=== PATIENT | female | born 1970 | race African-American/Black ===

== ENCOUNTER 2019-04-08 19:44 | Inpatient (IN) | payer BC, MEDICAID ==
[~2019-04-08] VITALS: Ht 154.9 cm; Wt 64.9 kg
[2019-04-08] MEDS: Lisinopril 20mg tab ORAL SCH (09:00)
[2019-04-08 22:15] VITALS: BP 157/101
--- NOTE | 2019-04-08 22:20 | NUR ---
NURSE NOTES: Patient arrived to the unit on on a gurney accompanied by cook cold meat. Report was given by Ranjana guzmán RN from [facility] ED Department. Patient was able to transfer self from the gurney to the bed with no incident. Patient is awake, alert and responsive. Breathing regular and unlabored on room air with no s/s of SOB noted at this time. IV access in on the LAC, 20G, patent, intact, and saline locked. Patient is c/o of a headache of 5/10 on the scale of 0-10. Will administer PRN medications after orders have been received by the primary MD. Placed patient on potline monitor, showing sinus rhythm. Belongings list reviewed and signed with the patient. Patient also brought home medications with her, medications taken and put away to give to onsite pharmacy in the morning once they arrive. Oriented patient to the room, patient is able to ambulate with a steady gait. Placed bed in lowest position, side-rails x2, breaks engaged, and call light is within reach at all times. Contacted Dr. Recinos for admitting orders, orders noted and carried out. All other needs attended to, patient remains stable, will continue to monitor.
[2019-04-08] MEDS ORDERED: METFORMIN HCL1000 M1 ORAL (23:45)
[2019-04-08] MEDS ORDERED: LISINOPRIL-HCT1 EAC2 ORAL (23:45)
[2019-04-08] MEDS ORDERED: PRAVASTATIN SOD20 M1 ORAL (23:45)
--- NOTE | 2019-04-08 23:45 | NUR ---
NURSE NOTES: Administered PRN Tylenol per MD orders, re-assessed the patient, patient no longer c/o headache the way she did before. BP also has decreased from previous reading. Patient is currently stable, all needs attended to, will continue to monitor.
[2019-04-09] VITALS: BP 142/92
[2019-04-09 04:00] VITALS: BP 138/83
[2019-04-09] MEDS: NovoLOG Insulin Flexpen SUBQ SCH ×4 (06:24→21:04)
[2019-04-09] MEDS: metFORMIN 500mg tab ORAL SCH ×2 (06:28→17:02)
[2019-04-09 06:56] LABS: BASOPHILS % (AUTO) 1.2 % (0.0-2.0); EOSINOPHILS % (AUTO) 1.5 % (0.0-3.0); HEMATOCRIT 34.2 % (37.0-47.0); HEMOGLOBIN 12.6 G/DL (12.0-16.0); MEAN CORPUSCULAR VOLUME 91 FL (80-99); MONOCYTES % (AUTO) 7.7 % (1.0-10.0); NEUTROPHILS % (AUTO) 52.6 % (45.0-75.0); PLATELET COUNT 164 K/UL (150-450); RED BLOOD COUNT 3.74 M/UL (4.20-5.40); RED CELL DISTRIBUTION WIDTH 11.6 % (11.6-14.8); WHITE BLOOD COUNT 6.3 K/UL (4.8-10.8)
--- NOTE | 2019-04-09 07:17 | NUR ---
HAND-OFF: Report given to Jamilah, plan of care endorsed, patient remains stable.
--- NOTE | 2019-04-09 07:34 | NUR ---
NURSE NOTES: Received report TEJINDER Rodriguez. Pt in bed, awake, talkative, c/o JAYSON, RN will administer Tylenol, no respiratory distress noted, discussed plan of care for pt and pending 2D echo and Dr. Golden to see pt today, IV site L AC 20g SL, bed in lowest position, call light within reach.
--- NOTE | 2019-04-09 07:46 | NUR ---
NURSE NOTES: eMAR showing past due Lisinopril for 04/08/2019 0900, pt was not admitted to [facility] until 04/08/2019 2200, RN non-administered medication as it was an error to show past due medication. Will administer 04/09/19 0900 dose based on pt's current BP
[2019-04-09 08:00] VITALS: BP 145/99
[2019-04-09 08:02] LABS: ALANINE AMINOTRANSFERASE 26 U/L (12-78); ALBUMIN 3.2 G/DL (3.4-5.0); ALBUMIN/GLOBULIN RATIO 0.9 (1.0-2.7); ALKALINE PHOSPHATASE 77 U/L (46-116); ANION GAP 8 mmol/L (5-15); ASPARTATE AMINO TRANSFERASE 13 U/L (15-37); BILIRUBIN,TOTAL 0.5 MG/DL (0.2-1.0); BLOOD UREA NITROGEN 17 mg/dL (7-18); CALCIUM 8.6 MG/DL (8.5-10.1); CARBON DIOXIDE 28 MMOL/L (21-32); CHLORIDE 103 MMOL/L (98-107); CHOLESTEROL 213 MG/DL (< 200); CREATININE 0.8 MG/DL (0.55-1.30); HDL CHOLESTEROL 25 MG/DL (40-60); PHOSPHORUS 3.5 MG/DL (2.5-4.9); POTASSIUM 3.7 MMOL/L (3.5-5.1); SODIUM 139 MMOL/L (136-145); TRIGLYCERIDES 840 MG/DL (30-150)
--- NOTE | 2019-04-09 08:02 | NUR ---
NURSE NOTES: Performed am assessment with pt, Pt states she has TYLER 5/10 on Left side of head and tingling down right arm, RN performed neuro assessment with pt, A/Ox4, pupils STEVE, no deficits between left and right arms and hands, slight deficit between left and right lower extremity. Left foot strength 3/5, right foot is 5/5. RN left message for Dr. Golden Addendum: 04/09/19 at 0810 by MARIA ELENA KWOK RN NURSE NOTES: RN also notified Dr. Recinos Addendum: 04/09/19 at 1037 by MARIA ELENA KWOK RN NURSE NOTES: Discussed with Annalise Fajardo, DIVIDEND DEPOSIT ENTRY CLERK assessment finding including tingling and pt TYLER, Annalise stated she noted a deficit in her strength in hands at this time, DIVIDEND DEPOSIT ENTRY CLERK ordered carotid duplex and contacted Dr. Golden for a neuro consult
[2019-04-09] MEDS: hydroCHLOROthiazide 25mg cap ORAL SCH (09:15)
[2019-04-09] MEDS: Lisinopril 20mg tab ORAL SCH (09:16)
[2019-04-09] MEDS: Heparin 5000 units/ml inj SUBQ SCH ×2 (09:17→21:03)
[2019-04-09 12:00] VITALS: BP 145/92
[2019-04-09] MEDS ORDERED: LORazepam Inj 2mg/ml 1ml IV PRN (12:00)
--- NOTE | 2019-04-09 12:01 | History & Physical ---
History and Physical History & Physicial Dictated for Int Med-Dr Recinos no. [id number]. Karan Golden MD Apr 09, 2019 12:01
--- NOTE | 2019-04-09 12:05 | Diagnostic Imaging Report ---
Indication: TIA TECHNIQUE: Duplex extracranial carotid and vertebral artery sonography performed with color flow imaging and waveform analysis. COMPARISON: None FINDINGS: Right carotid: Grayscale and color-flow imaging demonstrating no hemodynamically significant stenosis within the common carotid artery, extracranial internal carotid artery. Peak systolic and end-diastolic velocities are within normal limits. ICA/CCA ratios are within normal limits. Mild heterogeneous plaques are demonstrated consistent with atherosclerotic disease. Left carotid: Grayscale and color-flow imaging demonstrating no hemodynamically significant stenosis within the common carotid artery, extracranial internal carotid artery. Peak systolic and end-diastolic velocities are within normal limits. ICA/CCA ratios are within normal limits. Mild heterogeneous plaques are demonstrated consistent with atherosclerotic disease. Vertebral arteries: Antegrade flow demonstrated within both vertebral arteries. IMPRESSION: No hemodynamically significant extracranial carotid artery stenosis identified. Antegrade flow within both vertebral arteries. This report utilizes carotid stenosis grading criteria based on the meeting of Society of radiologists in ultrasound consensus conference, December 2001.
[2019-04-09] MEDS: DiphenhydrAMINE 25mg Tab ORAL PRN ×2 (13:05→21:09)
--- NOTE | 2019-04-09 13:09 | Consultation ---
History of Present Illness General Date patient seen: Apr 09, 2019 Time patient seen: 11:03 Chief Complaint: left side weakness Referring physician: dr Recinos Reason for Consultation: critical care consult/hospitalist Present Illness HPI 48 y/old female with PMH of HTN, DM< HLD initially presented to [facility] with sudden onset of left sided numbness around 1 pm at 04/08/19. BP was severely elevated at 197/129-> 194/103-> 170/99. Patient subsequently developed headache and had a blurred vision in the left eye. These symptoms currently resolved. No CP, no SOB CT of the head and MRI of the brain failed to revealed acute intracranial pathology. Patient was transferred to [facility] per insurance purposes. Patient reported today RUE tingling and discomfort at the neck area. Yesterday numbness was on LUE She denied dysphagia, drooling, voice change. She reports smoking about 1 pk/week, no ETOH or illicit drug use. Troponin negative. ECG revealed no acute ischemic changes. BP improved. Lipid panel revealed elevated TC >200 and severely elevated TG >800 Mg-1.6 Allergies: Coded Allergies: No Known Allergies (Unverified , 04/08/19) Medication History Scheduled Lisinopril/Hydrochlorothiazide 20-25 Mg Tab (Lisinopril-Hctz 20-25 Mg Tab), 1 TAB ORAL DAILY, (Reported) Metformin Hcl* (Metformin Hcl*), 1,000 MG ORAL DAILY, (Reported) Pravastatin Sod* (Pravastatin Sod*), 20 MG ORAL BEDTIME, (Reported) Patient History History Provided By: Patient Healthcare decision maker Resuscitation status Full Code Advanced Directive on File Past Medical/Surgical History Past Medical/Surgical History: (1) Hyperlipidemia (2) DM (diabetes mellitus) (3) Hypertension Review of Systems Constitutional: Reports: no symptoms Respiratory: Reports: no symptoms Cardiovascular: Reports: no symptoms Gastrointestinal: Reports: no symptoms Genitourinary: Reports: no symptoms Musculoskeletal: Reports: see HPI Skin: Reports: no symptoms Psychiatric: Reports: no symptoms Neurological: Reports: see HPI Endocrine: Reports: other - DM Hematologic/Lymphatic: Reports: no symptoms Physical Exam General Appearance: WD/WN, no apparent distress, alert Lines, tubes and drains: peripheral HEENT: normocephalic, atraumatic, anicteric, mucous membranes moist Neck: supple Respiratory/Chest: lungs clear, no respiratory distress, no accessory muscle use Cardiovascular/Chest: normal peripheral pulses, normal rate, regular rhythm Abdomen: normal bowel sounds, non tender, soft Extremities: no calf tenderness, normal capillary refill Skin Exam: warm/dry Neurologic: alert, normal mood/affect - L pronator drift, other - L sided motor strength 3/5, R sided 5/5, L pronator drift Musculoskeletal: normal muscle bulk Last 24 Hour Vital Signs Date Time Temp Pulse Resp B/P (MAP) Pulse Ox O2 Delivery O2 Flow Rate FiO2 04/09/19 12:00 97.9 74 16 145/92 (109) 96 04/09/19 09:16 145/99 04/09/19 08:19 Room Air 04/09/19 08:13 98.2 04/09/19 08:00 98.2 80 16 145/99 (114) 96 04/09/19 07:43 80 04/09/19 04:00 77 04/09/19 04:00 97.7 80 16 138/83 (101) 97 04/09/19 00:00 74 04/09/19 00:00 97.5 77 16 142/92 (109) 98 04/08/19 22:50 Room Air 04/08/19 22:20 81 04/08/19 22:15 97.7 83 16 157/101 (119) 96 Intake and Output 04/08/19 04/09/19 19:00 07:00 Output Total 1 ml Balance -1 ml Output Urine Total 1 ml Laboratory Tests Test 04/09/19 05:35 White Blood Count 6.3 K/UL (4.8-10.8) Red Blood Count 3.74 M/UL (4.20-5.40) L Hemoglobin 12.6 G/DL (12.0-16.0) Hematocrit 34.2 % (37.0-47.0) L Mean Corpuscular Volume 91 FL (80-99) Mean Corpuscular Hemoglobin 33.7 PG (27.0-31.0) H Mean Corpuscular Hemoglobin Concent 36.9 G/DL (32.0-36.0) H Red Cell Distribution Width 11.6 % (11.6-14.8) Platelet Count 164 K/UL (150-450) Mean Platelet Volume 10.4 FL (6.5-10.1) H Neutrophils (%) (Auto) 52.6 % (45.0-75.0) Lymphocytes (%) (Auto) 37.0 % (20.0-45.0) Monocytes (%) (Auto) 7.7 % (1.0-10.0) Eosinophils (%) (Auto) 1.5 % (0.0-3.0) Basophils (%) (Auto) 1.2 % (0.0-2.0) Sodium Level 139 MMOL/L (136-145) Potassium Level 3.7 MMOL/L (3.5-5.1) Chloride Level 103 MMOL/L (98-107) Carbon Dioxide Level 28 MMOL/L (21-32) Anion Gap 8 mmol/L (5-15) Blood Urea Nitrogen 17 mg/dL (7-18) Creatinine 0.8 MG/DL (0.55-1.30) Estimat Glomerular Filtration Rate > 60 mL/min (>60) Glucose Level 283 MG/DL (74-106) H Calcium Level 8.6 MG/DL (8.5-10.1) Phosphorus Level 3.5 MG/DL (2.5-4.9) Magnesium Level 1.6 MG/DL (1.8-2.4) L Total Bilirubin 0.5 MG/DL (0.2-1.0) Aspartate Amino Transf (AST/SGOT) 13 U/L (15-37) L Alanine Aminotransferase (ALT/SGPT) 26 U/L (12-78) Alkaline Phosphatase 77 U/L (46-116) Troponin I 0.000 ng/mL (0.000-0.056) Total Protein 6.9 G/DL (6.4-8.2) Albumin 3.2 G/DL (3.4-5.0) L Globulin 3.7 g/dL Albumin/Globulin Ratio 0.9 (1.0-2.7) L Triglycerides Level 840 MG/DL (30-150) H Cholesterol Level 213 MG/DL (< 200) H LDL Cholesterol 67 mg/dL (<100) HDL Cholesterol 25 MG/DL (40-60) L Cholesterol/HDL Ratio 8.5 (3.3-4.4) H Height (Feet): 5 Height (Inches): 1.00 Weight (Pounds): 143 Medications Current Medications Medications (Trade) Dose Ordered Sig/Hans Route PRN Reason Start Time Stop Time Status Last Admin Dose Admin Acetaminophen (Tylenol) 650 mg Q6H PRN ORAL Mild Pain/Temp > 100.5 04/08/19 23:45 05/08/19 23:44 04/09/19 07:43 Aspirin (ASA) 325 mg DAILY ORAL 04/09/19 09:00 05/09/19 08:59 04/09/19 09:15 Clonidine HCl (Catapres Tab) 0.1 mg Q4H PRN ORAL SBP Greater than 160 04/09/19 00:00 05/09/19 00:00 Dextrose (Dextrose 50%) 25 ml Q30M PRN IV Hypoglycemia 04/08/19 23:45 05/08/19 23:44 Dextrose (Dextrose 50%) 50 ml Q30M PRN IV Hypoglycemia 04/08/19 23:45 05/08/19 23:44 Diphenhydramine HCl (Benadryl) 25 mg Q6H PRN ORAL Itching 04/09/19 12:00 05/09/19 11:59 Heparin Sodium (Porcine) (Heparin 5000 units/ml) 5,000 units EVERY 12 HOURS SUBQ 04/09/19 09:00 05/09/19 08:59 04/09/19 09:17 Hydrochlorothiazide (Hydrodiuril) 25 mg DAILY ORAL 04/09/19 09:00 05/09/19 08:59 04/09/19 09:15 Insulin Aspart (NovoLOG) BEFORE MEALS AND HS SUBQ 04/09/19 06:30 05/09/19 06:29 04/09/19 06:24 Lisinopril (PriniviL) 20 mg DAILY ORAL 04/08/19 09:00 05/08/19 08:59 04/09/19 09:16 Lorazepam (Ativan 2mg/ml 1ml) 0.5 mg ONCE PRN IV prior to MRI 04/09/19 12:00 04/09/19 18:00 Metformin HCl (Glucophage) 500 mg BID@0630,1630 ORAL 04/09/19 06:30 05/09/19 06:29 04/09/19 06:28 Ondansetron HCl (Zofran) 4 mg Q4H PRN IVP Nausea & Vomiting 04/08/19 23:45 05/08/19 23:44 Pravastatin Sodium (Pravachol) 20 mg BEDTIME ORAL 04/09/19 21:00 05/09/19 20:59 Assessment/Plan Assessment/Plan: ASSESSMENT 1. L sided weakness , likely CVA 2. HTN with initial HTN urgency 3. DM 4. Mixed HLD with severely elevated TG 5. Smoker 6. Hypomagnesemia PLAN OF CARE tele CT head and MRI negative ( done in [place]) neuro eval carotid Duplex lipid panel with severely elevated TG>800, start pt on TriCor, monitor LFT ASA, statin BP management with LUIS EDUARDO BS management with metformin and SSI as needed; check HgA1c educated on low fat low cholesterol, LOW FAT diet counseling services director on smoking cessation, declined Nicotine patch replace Mg , check level in am case discussed and evaluated by supervising physician Annalise Fajardo NP Apr 09, 2019 13:09
--- NOTE | 2019-04-09 13:45 | NUR ---
CASE MANAGEMENT:REVIEW 48 YR OLD FEMALE TRANSFERRED FROM [facility] TO [place] CC: LEFT SIDED WEAKNESS SI: PROBABLE CVA 97.7 83 16 157/101 96% ON RA GLUCOSE+283 MAG-1.6 IS: TRICOR PO QD IV MAG X1 HEPARIN SQ Q12 ASA PO HCTZ PO QD LISINOPRIL : DIRECTLY ADMITTED TO TELEMETRY PLAN: 2DECHO ST EVAL EKG CAROTID DUPLEX NEURO CONSULT ~ DR VERAS
--- NOTE | 2019-04-09 14:00 | History and Physical Report ---
DATE OF ADMISSION: 04/08/2019 CHIEF COMPLAINT: The patient is a 48-year-old female, who presents with a chief complaint of left-sided weakness and high blood pressure. HISTORY OF PRESENT ILLNESS: The patient has a history of diabetes and hypertension. The patient states she was on her way to work yesterday, approximately noon. The patient began to experience numbness of her left fingers and toes. 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 The patient states her blood pressure at the halfway facility was in the 200/115. The patient then began to experience a headache. The patient also started to have blurred vision in the left eye. The patient initially presented to [facility] emergency room. An initial CT scan of the brain was reported as no evidence of intracranial abnormalities. The patient is transferred to [facility] for insurance purposes. The patient is admitted with left-sided numbness to rule out acute cerebrovascular accident. The patient is also admitted with hypertensive emergency. REVIEW OF SYSTEMS: CONSTITUTIONAL: The patient denies weight loss or weight gain. The patient denies fevers or chills. HEENT: The patient complains of headache as above. The patient denies ear or throat pain. CHEST: The patient denies wheeze or shortness of breath. CARDIOVASCULAR: The patient denies palpitations or chest pain. ABDOMEN: The patient denies nausea, vomiting, diarrhea, or constipation. GENITOURINARY: The patient denies dysuria or increased frequency urination. NEUROMUSCULAR: The patient complains of numbness of the left hand and left toes as above. The patient denies seizures or generalized weakness. PAST MEDICAL HISTORY: Significant for: 1. Type 2 diabetes. 2. Hypertension. 3. Hypercholesterolemia. PAST SURGICAL HISTORY: Significant for: 1. Total abdominal hysterectomy. 2. section x2. CURRENT MEDICATIONS: 1. Metformin 1000 mg p.o. twice daily. 2. Lisinopril/hydrochlorothiazide 20/25 one tablet p.o. daily. 3. Pravastatin 20 mg p.o. daily. ALLERGIES: No known drug allergies. SOCIAL HISTORY: The patient is single and lives alone. The patient admits to tobacco use of one-quarter pack per day. The patient denies alcohol use. PHYSICAL EXAMINATION: VITAL SIGNS: Temperature 98.6, respirations 14, pulse 78, blood pressure 170/99 to 194/103. GENERAL: The patient is well-developed, well-nourished, female, in no apparent distress. HEENT: Eyes, pupils equal and responsive to light and accommodation. Extraocular movements are intact. NECK: Supple without lymphadenopathy. CHEST: Lungs are clear to auscultation bilaterally without wheezes or rales. CARDIOVASCULAR: Regular rate S1, S2 normal without murmurs, rubs, or gallops. ABDOMEN: Soft, nontender, and nondistended. Positive bowel sounds. No evidence of hepatosplenomegaly. Currently, no rebound or guarding noted. EXTREMITIES: Negative for clubbing, cyanosis, or edema. RECTAL/GENITAL: Not performed. NEUROLOGIC: Cranial nerves II through XII are grossly intact without focal deficits. Motor strength is 5/5 bilaterally. Deep tendon reflexes are 2+ plantar. LABORATORY STUDIES: WBC 6.9, hemoglobin 13.1, hematocrit 39.1, platelets 183,000. Sodium 139, potassium 4.3, chloride 104, CO2 27, BUN 11, creatinine 0.51, glucose 212. A CT of the brain revealed no acute intracranial abnormalities. ASSESSMENT: This is a 48-year-old female: 1. Left-sided numbness. 2. Hypertensive emergency. 3. Headache. 4. Blurred vision. 5. Diabetes type 2. 6. Hypertension. 7. Hypercholesterolemia. TREATMENT: 1. Left-sided numbness/headache/blurred vision. Initial CAT scan was reported as no acute intracranial abnormalities. An MRI of the brain is pending. Carotid duplex Dopplers are pending. Neurology consultation has been obtained with Dr. Jax Quezada. We will follow recommendations of Neurology. Differential includes acute cerebrovascular accident versus transient ischemic attack. 2. Hypertensive emergency. The patient has been placed on lisinopril and hydrochlorothiazide as above. Clonidine will be used p.r.n. for systolic greater than 150, diastolic greater than 100. 3. Diabetes type 2. Continue metformin as above. NovoLog sliding scale has been instituted for coverage. 4. Hypercholesterolemia. Continue atorvastatin as above. Karan Golden M.D. DR: LETTY/BETH JOB#: [id number] CC:
--- NOTE | 2019-04-09 15:06 | NUR ---
SWALLOW/SPEECH THERAPY NOTE: REFERRED FOR SWALLOW EVALUATION BY DR GUIDO, SEE FULL REPORT. DYSPHAGIA RISK FACTORS FOR THIS 48 Y.O.? HANDED AA FEMALE: ACUTE TIA (R/O CVA NEG ON MRI/BRAIN AND CT/HEAD SCANS) WITH MIXER OPERATOR RAW SALT (UE FINGERS AND TOES) AND BLURRED VISION RESOLVED PER TRISTIAN KIM MD, HOSPITAL SHE TRANSFERRED FROM. PER PT, HER COWORKERS SAID HER SPEECH CHANGED AND WAS LESS CLEAR BUT THIS PROBLME HAS RESOLVED. H/O HTN, DIABETES (ON INSULIN), AND SMOKING EVERYDAY. NO POLST/AD REGARDING ARTIFICIAL NUTRITION IF SHE NEEDS. AT HOME ON REGULAR TEXTURE AND THIN LIQUID DIET. NOW ON CARDIAC REGULAR TEXTURE AND THIN LIQUID DIET. PER MARIA ELENA MARR, NO OVERT S/S OF DYSPHAGIA NOR ASPIRATION WITH THIN LIQUIDS AND SMALL TYLENOL PILL. PER PATIENT, SHE HAD RIGHT FINGER/HAND TINGLING A MONTH AGO. HER SISTER SAID THAT THEIR FAMILY HAS A H/O STROKES. PATIENT DENIES ANY SPEECH, SWALLOWING, NOR SIGNIFICANT COGNITIVE-LANGUAGE PROBLEMS. SHE DID SAY HER LEFT LE STILL FEELS WEAK (SHE SAW PT). GOOD INTAKE W/O OVERT ASP ON REGULAR TEXTURE AND THIN LIQUIDS PER STAFF. INITIAL IMPRESSIONS: GROSSLY FUNCTIONAL OROMOTOR SKILLS AND SWALLOWING SKILLS WITH ALL CONSISTENCIES OF THIN LIQUIDS VIA STRAW SEQUENTIAL SIPS OF 3 OZ WATER, PUREED TSP, AND MASTICATED SOLIDS (1/2 CRACKER). NO OVERT S/S OF ASPIRATION. QUESTIONABLE RISK FOR SILENT ASPIRATION (PER CT HEAD AND MRI BRAIN NEGATIVE THOUGH PT STILL HAS SOME WEAKNESS ON HER LEFT LE OR FOOT). LUNGS ARE CLEAR NOW. RECOMMENDATIONS: CONSIDER CONTINUING WITH CURRENT REGULAR TEXTURE DIET AND THIN LIQUIDS W/O NEED FOR SPECIFIC ASPIRATION PRECAUTIONS. UNLIKELY NEED FOR MODIFIED BARIUM SWALLOW STUDY AT THIS TIME. DR VERAS, NEUROLOGIST TO SEE PATIENT TOMORROW. GAVE PATIENT AND HER SISTER SOME WRITTEN AND GENERAL INFORMATION ON STROKE FOR FUTURE REFERENCES. WILL D/C FROM SKILLED PIPE [employer]TER [employer] AT THIS TIME PATIENT HAS GROSSLY FUNCTIONAL SPEECH, SWALLOWING, AND COGNITIVE-LINGUISTIC SKILLS AT THIS TIME. 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
[2019-04-09 15:25] VITALS: BP 136/89
--- NOTE | 2019-04-09 19:22 | NUR ---
HAND-OFF: Report given to TEJINDER Rodriguez.
--- NOTE | 2019-04-09 19:30 | NUR ---
NURSE NOTES: Received report from TEJINDER Askew. Patient is in bed, awake, alert, and responsive. Breathing regular and unlabored with no s/s of SOB noted at this time. Patient shows no signs of facial drooping, however the right side is stronger in strength than the left. Neurologist is on the case and primary MD is aware of findings. Patient is no longer c/o a headache, just stating that "My left side of the head feels a bit sore." No numbness or tingling noted. IV access is on the LAC, 20G, patent, intact, and saline locked. Bed is in lowest position, breaks engaged, and call light is within reach at all times. All other needs attended to, patient remains stable, will continue to monitor.
[2019-04-09 20:00] VITALS: BP 143/92
[2019-04-10] VITALS: BP 145/92
[2019-04-10 04:00] VITALS: BP 126/78
[2019-04-10] MEDS: metFORMIN 500mg tab ORAL SCH ×2 (06:14→17:02)
[2019-04-10] MEDS: NovoLOG Insulin Flexpen SUBQ SCH ×4 (06:15→20:30)
[2019-04-10 07:08] LABS: BASOPHILS % (AUTO) 1.8 % (0.0-2.0); EOSINOPHILS % (AUTO) 1.2 % (0.0-3.0); HEMATOCRIT 37.5 % (37.0-47.0); HEMOGLOBIN 14.4 G/DL (12.0-16.0); LYMPHOCYTES % (AUTO) 40.6 % (20.0-45.0); MEAN CORPUSCULAR VOLUME 91 FL (80-99); MONOCYTES % (AUTO) 7.1 % (1.0-10.0); NEUTROPHILS % (AUTO) 49.3 % (45.0-75.0); PLATELET COUNT 205 K/UL (150-450); RED CELL DISTRIBUTION WIDTH 11.5 % (11.6-14.8); WHITE BLOOD COUNT 5.9 K/UL (4.8-10.8)
--- NOTE | 2019-04-10 07:26 | NUR ---
HAND-OFF: Report given to TEJINDER Mariee. Patient remians in stable condition. Plan of care endorsed.
--- NOTE | 2019-04-10 07:30 | NUR ---
NURSE NOTES: Received pt from COOPER MARR, Pt is awake and alert, pt is in RA, no SOB or acute respiratory distress noted. pt has intact iv access LAC 20G SL. Pt is eating breakfast with observation, all needs attended, bed is locked and is in the lowest position, call light within easy reach. will continue to monitor.
[2019-04-10 07:34] LABS: ANION GAP 6 mmol/L (5-15); BLOOD UREA NITROGEN 17 mg/dL (7-18); CALCIUM 8.7 MG/DL (8.5-10.1); CARBON DIOXIDE 30 MMOL/L (21-32); CHLORIDE 100 MMOL/L (98-107); CREATININE 0.8 MG/DL (0.55-1.30); POTASSIUM 4.4 MMOL/L (3.5-5.1); SODIUM 136 MMOL/L (136-145)
[2019-04-10 08:00] VITALS: BP 144/95
[2019-04-10] MEDS: hydroCHLOROthiazide 25mg cap ORAL SCH (08:26)
[2019-04-10] MEDS: Lisinopril 20mg tab ORAL SCH (08:27)
[2019-04-10] MEDS: Heparin 5000 units/ml inj SUBQ SCH ×2 (08:31→20:31)
--- NOTE | 2019-04-10 09:19 | NUR ---
CASE MANAGEMENT:REVIEW 04/10/19 SI: HYPERTENSION. DM POSSIBLE CVA. BLURRED VISION. SLURRED SPEECH 98.1 80 19 144/95 98% ON RA GLUCOSE+298 A1C+9.5 MAG-1.7 IS: TRICOR PO QD HEPARIN SQ Q12 ASA PO QD HCTZ PO QD SS INSULIN AC+HS METFORMIN PO BID LISINOPRIL PO QD : TELEMETRY STATUS DCP: HOME
--- NOTE | 2019-04-10 09:29 | NUR ---
INSURANCE PER B/AR INFORMATION PATIENT HAS BEEN APPROVED FOR 2 DAY STAY IF PATIENT IS HERE LONGER THAN 2 DAYS THEN CLINICALS NEED TO BE FAXED TO F: [phone] T:[phone] REF # [id number]
[2019-04-10 12:00] VITALS: BP 140/93
--- NOTE | 2019-04-10 12:30 | NUR ---
NURSE NOTES: Received pt from KELLEE MARR, Pt is awake and alert, pt is in RA, no SOB or acute respiratory distress noted. pt has intact iv access LFA 20G is running well. Pt is on continues heart monitoring, all needs attended, bed is locked and is in the lowest position, call light within easy reach. will continue to monitor. Addendum: 04/10/19 at 1243 by Jaylene Kuhn RN ERROR WRONG PT.
--- NOTE | 2019-04-10 13:07 | Pulmonology Progress Note ---
Assessment/Plan Problems: (1) Cerebral vascular accident (2) Hypertension (3) DM (diabetes mellitus) Assessment/Plan neuro evaluation requested Echo and US of carotid artery pending monitor BP sliding scale diabetic diet Subjective ROS Limited/Unobtainable: No Constitutional: Reports: no symptoms HEENT: Repors: no symptoms Respiratory: Reports: no symptoms Allergies: Coded Allergies: No Known Allergies (Unverified , 04/08/19) Objective Last 24 Hour Vital Signs Date Time Temp Pulse Resp B/P (MAP) Pulse Ox O2 Delivery O2 Flow Rate FiO2 04/10/19 12:00 98.7 61 18 140/93 (109) 96 04/10/19 11:46 80 04/10/19 09:00 Room Air 04/10/19 08:27 144/95 04/10/19 08:00 98.1 80 19 144/95 (111) 98 04/10/19 07:50 82 04/10/19 04:00 97.5 86 20 126/78 (94) 95 04/10/19 04:00 68 04/10/19 00:00 97.7 80 20 145/92 (109) 95 04/10/19 00:00 81 04/09/19 21:00 Room Air 04/09/19 20:00 97.7 86 20 143/92 (109) 95 04/09/19 20:00 83 04/09/19 16:30 89 04/09/19 15:25 98.2 83 16 136/89 (105) 96 Intake and Output 04/09/19 04/10/19 19:00 07:00 Intake Total 660 ml 360 ml Output Total 2 ml Balance 660 ml 358 ml Intake Oral 660 ml 360 ml Output Urine Total 2 ml # Voids 2 6 General Appearance: WD/WN HEENT: normocephalic, atraumatic Respiratory/Chest: chest wall non-tender, lungs clear, normal breath sounds Cardiovascular: normal peripheral pulses, normal rate Abdomen: normal bowel sounds, soft, non tender Extremities: no cyanosis, no clubbing Skin: no ulcers 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: 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, no motor/sensory deficits Laboratory Tests 04/10/19 05:34: White Blood Count 5.9, Red Blood Count 4.10L, Hemoglobin 14.4, Hematocrit 37.5, Mean Corpuscular Volume 91, Mean Corpuscular Hemoglobin 35.1H, Mean Corpuscular Hemoglobin Concent 38.4H, Red Cell Distribution Width 11.5L, Platelet Count 205 , Mean Platelet Volume 12.1H, Neutrophils (%) (Auto) 49.3, Lymphocytes (%) (Auto ) 40.6, Monocytes (%) (Auto) 7.1, Eosinophils (%) (Auto) 1.2, Basophils (%) ( Auto) 1.8, Sodium Level 136, Potassium Level 4.4, Chloride Level 100, Carbon Dioxide Level 30, Anion Gap 6, Blood Urea Nitrogen 17, Creatinine 0.8, Estimat Glomerular Filtration Rate > 60, Glucose Level 298H, Hemoglobin A1c 9.5H, Calcium Level 8.7, Magnesium Level 1.7L, Thyroid Stimulating Hormone (TSH) 1.815 Current Medications Medications (Trade) Dose Ordered Sig/Hans Route PRN Reason Start Time Stop Time Status Last Admin Dose Admin Acetaminophen (Tylenol) 650 mg Q6H PRN ORAL Mild Pain/Temp > 100.5 04/08/19 23:45 05/08/19 23:44 04/09/19 07:43 Aspirin (ASA) 325 mg DAILY ORAL 04/09/19 09:00 05/09/19 08:59 04/10/19 08:27 Clonidine HCl (Catapres Tab) 0.1 mg Q4H PRN ORAL SBP Greater than 160 04/09/19 00:00 05/09/19 00:00 Dextrose (Dextrose 50%) 25 ml Q30M PRN IV Hypoglycemia 04/08/19 23:45 05/08/19 23:44 Dextrose (Dextrose 50%) 50 ml Q30M PRN IV Hypoglycemia 04/08/19 23:45 05/08/19 23:44 Diphenhydramine HCl (Benadryl) 25 mg Q6H PRN ORAL Itching 04/09/19 12:00 05/09/19 11:59 04/09/19 21:09 Fenofibrate (Tricor) 145 mg DAILY ORAL 04/10/19 09:00 05/10/19 08:59 04/10/19 08:26 Heparin Sodium (Porcine) (Heparin 5000 units/ml) 5,000 units EVERY 12 HOURS SUBQ 04/09/19 09:00 05/09/19 08:59 04/10/19 08:31 Hydrochlorothiazide (Hydrodiuril) 25 mg DAILY ORAL 04/09/19 09:00 05/09/19 08:59 04/10/19 08:26 Insulin Aspart (NovoLOG) BEFORE MEALS AND HS SUBQ 04/09/19 06:30 05/09/19 06:29 04/10/19 11:28 Lisinopril (PriniviL) 20 mg DAILY ORAL 04/08/19 09:00 05/08/19 08:59 04/10/19 08:27 Metformin HCl (Glucophage) 500 mg BID@0630,1630 ORAL 04/09/19 06:30 05/09/19 06:29 04/10/19 06:14 Ondansetron HCl (Zofran) 4 mg Q4H PRN IVP Nausea & Vomiting 04/08/19 23:45 05/08/19 23:44 Pravastatin Sodium (Pravachol) 20 mg BEDTIME ORAL 04/09/19 21:00 05/09/19 20:59 04/09/19 21:02 James Thibodeaux MD Apr 10, 2019 13:07
--- NOTE | 2019-04-10 15:17 | NUR ---
04/10/19...Concerning Cervical MRI, Pt attempts to do another MRI exam after she had just completed the MRI Brain exam. However, pt refused to start exam at this time due to claustrophobia. Although pt was offered Ativan p.o., and I offered to stay overtime if needed, Pt still did not wish to perform scan. Pt is willing to try again tomorrow. RN Afsoon is aware. arpan 15:17
--- NOTE | 2019-04-10 15:30 | NUR ---
NURSE NOTES: pt refused C spine MRI x3 attempts, explained risks and benefits but pt asked for tomorrow, pt took shower and tolerate well. will continue to monitor.
[2019-04-10 16:00] VITALS: BP 140/89
--- NOTE | 2019-04-10 16:13 | Diagnostic Imaging Report ---
Indication: Blurred vision. Numbness in the left hand. Hypertension Technique: The head was imaged in a 1.5 Reina magnet. Sequences obtained include sagittal and axial T1 FLAIR, axial T2 fast spin echo with fat saturation, axial T2* GRE, axial T2 FLAIR, diffusion and ADC map. Comparison: None Findings: The size, contour, and configuration of the sulci, ventricles, and basal cisterns appear normal. Walters-white differentiation is normal. In the periventricular white matter, there are small areas of mostly confluent T2 hyperintense signal. Findings are nonspecific. There is no restricted diffusion. There is no mass effect, midline shift, edema, or hemorrhage. There are no abnormal extra-axial or intra-axial fluid collections. The corpus callosum is unremarkable. The brainstem and cerebellum are unremarkable. The sella is unremarkable. Bone marrow signal within the visualized osseous structures appears age appropriate and unremarkable otherwise. Impression: Periventricular T2 hyperintense signal. Findings are nonspecific. At this age considerations include chronic small vessel disease which may be associated with hypertension. Demyelinating disease is not excludable. Clinical correlation is needed.
--- NOTE | 2019-04-10 16:34 | Internal Med Progress Note ---
Subjective Date of Service: Apr 10, 2019 Physician Name Karan Golden Attending Physician Marcel Recinos MD Current Medications Medications (Trade) Dose Ordered Sig/Hans Route PRN Reason Start Time Stop Time Status Last Admin Dose Admin Acetaminophen (Tylenol) 650 mg Q6H PRN ORAL Mild Pain/Temp > 100.5 04/08/19 23:45 05/08/19 23:44 04/09/19 07:43 Aspirin (ASA) 325 mg DAILY ORAL 04/09/19 09:00 05/09/19 08:59 04/10/19 08:27 Clonidine HCl (Catapres Tab) 0.1 mg Q4H PRN ORAL SBP Greater than 160 04/09/19 00:00 05/09/19 00:00 Dextrose (Dextrose 50%) 25 ml Q30M PRN IV Hypoglycemia 04/08/19 23:45 05/08/19 23:44 Dextrose (Dextrose 50%) 50 ml Q30M PRN IV Hypoglycemia 04/08/19 23:45 05/08/19 23:44 Diphenhydramine HCl (Benadryl) 25 mg Q6H PRN ORAL Itching 04/09/19 12:00 05/09/19 11:59 04/09/19 21:09 Fenofibrate (Tricor) 145 mg DAILY ORAL 04/10/19 09:00 05/10/19 08:59 04/10/19 08:26 Heparin Sodium (Porcine) (Heparin 5000 units/ml) 5,000 units EVERY 12 HOURS SUBQ 04/09/19 09:00 05/09/19 08:59 04/10/19 08:31 Hydrochlorothiazide (Hydrodiuril) 25 mg DAILY ORAL 04/09/19 09:00 05/09/19 08:59 04/10/19 08:26 Insulin Aspart (NovoLOG) BEFORE MEALS AND HS SUBQ 04/09/19 06:30 05/09/19 06:29 04/10/19 11:28 Lisinopril (PriniviL) 20 mg DAILY ORAL 04/08/19 09:00 05/08/19 08:59 04/10/19 08:27 Metformin HCl (Glucophage) 500 mg BID@0630,1630 ORAL 04/09/19 06:30 05/09/19 06:29 04/10/19 06:14 Ondansetron HCl (Zofran) 4 mg Q4H PRN IVP Nausea & Vomiting 04/08/19 23:45 05/08/19 23:44 Pravastatin Sodium (Pravachol) 20 mg BEDTIME ORAL 04/09/19 21:00 05/09/19 20:59 04/09/19 21:02 Allergies: Coded Allergies: No Known Allergies (Unverified , 04/08/19) ROS Limited/Unobtainable: No Constitutional: Reports: no symptoms HEENT: Reports: no symptoms Cardiovascular: Reports: no symptoms Respiratory: Reports: no symptoms Gastrointestinal/Abdominal: Reports: no symptoms Genitourinary: Reports: no symptoms 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: Reports: no symptoms Subjective 48 YO F admitted with left side numbness and headache. Now Hypertensive emergency. Cover for Int [place]-DR Recinos Objective Last Vital Signs Date Time Temp Pulse Resp B/P (MAP) Pulse Ox O2 Delivery O2 Flow Rate FiO2 04/10/19 16:00 98.1 85 20 140/89 (106) 91 04/10/19 09:00 Room Air Laboratory Tests Test 04/10/19 05:34 White Blood Count 5.9 K/UL (4.8-10.8) Red Blood Count 4.10 M/UL (4.20-5.40) L Hemoglobin 14.4 G/DL (12.0-16.0) Hematocrit 37.5 % (37.0-47.0) Mean Corpuscular Volume 91 FL (80-99) Mean Corpuscular Hemoglobin 35.1 PG (27.0-31.0) H Mean Corpuscular Hemoglobin Concent 38.4 G/DL (32.0-36.0) H Red Cell Distribution Width 11.5 % (11.6-14.8) L Platelet Count 205 K/UL (150-450) Mean Platelet Volume 12.1 FL (6.5-10.1) H Neutrophils (%) (Auto) 49.3 % (45.0-75.0) Lymphocytes (%) (Auto) 40.6 % (20.0-45.0) Monocytes (%) (Auto) 7.1 % (1.0-10.0) Eosinophils (%) (Auto) 1.2 % (0.0-3.0) Basophils (%) (Auto) 1.8 % (0.0-2.0) Sodium Level 136 MMOL/L (136-145) Potassium Level 4.4 MMOL/L (3.5-5.1) Chloride Level 100 MMOL/L (98-107) Carbon Dioxide Level 30 MMOL/L (21-32) Anion Gap 6 mmol/L (5-15) Blood Urea Nitrogen 17 mg/dL (7-18) Creatinine 0.8 MG/DL (0.55-1.30) Estimat Glomerular Filtration Rate > 60 mL/min (>60) Glucose Level 298 MG/DL (74-106) H Hemoglobin A1c 9.5 % (4.3-6.0) H Calcium Level 8.7 MG/DL (8.5-10.1) Magnesium Level 1.7 MG/DL (1.8-2.4) L Thyroid Stimulating Hormone (TSH) 1.815 uiU/mL (0.358-3.740) Intake and Output 04/09/19 04/10/19 19:00 07:00 Intake Total 660 ml 360 ml Output Total 2 ml Balance 660 ml 358 ml Intake Oral 660 ml 360 ml Output Urine Total 2 ml # Voids 2 6 Objective PHYSICAL EXAMINATION: GENERAL: The patient is well-developed, well-nourished, female, in no apparent distress. HEENT: Eyes, pupils equal and responsive to light and accommodation. Extraocular movements are intact. NECK: Supple without lymphadenopathy. CHEST: Lungs are clear to auscultation bilaterally without wheezes or rales. CARDIOVASCULAR: Regular rate S1, S2 normal without murmurs, rubs, or gallops. ABDOMEN: Soft, nontender, and nondistended. Positive bowel sounds. No evidence of hepatosplenomegaly. Currently, no rebound or guarding noted. EXTREMITIES: Negative for clubbing, cyanosis, or edema. RECTAL/GENITAL: Not performed. NEUROLOGIC: Cranial nerves II through XII are grossly intact without focal deficits. Motor strength is 5/5 bilaterally. Deep tendon reflexes are 2+ plantar. Assessment/Plan Assessment/Plan ASSESSMENT: This is a 48-year-old female: 1. Left-sided numbness. 2. Hypertensive emergency. 3. Headache. 4. Blurred vision. 5. Diabetes type 2. 6. Hypertension. 7. Hypercholesterolemia. TREATMENT: 1. Left-sided numbness/headache/blurred vision. Initial CAT scan was reported as no acute intracranial abnormalities. An MRI of the brain= non specific findings; no definite infarct. Carotid duplex Dopplers are pending. A Neurology consultation has been obtained with Dr. Jax Quezada. We will follow recommendations of Neurology. Differential includes acute cerebrovascular accident versus transient ischemic attack. 2. Hypertensive emergency. The patient has been placed on lisinopril and hydrochlorothiazide as above. Clonidine will be used p.r.n. for systolic greater than 150, diastolic greater than 100. 3. Diabetes type 2. Continue metformin as above. NovoLog sliding scale has been instituted for coverage. 4. Hypercholesterolemia. Continue atorvastatin as above. Karan Golden MD Apr 10, 2019 16:34
[2019-04-10 18:08] LABS: ANION GAP 8 mmol/L (5-15); BLOOD UREA NITROGEN 16 mg/dL (7-18); CALCIUM 9.2 MG/DL (8.5-10.1); CARBON DIOXIDE 31 MMOL/L (21-32); CHLORIDE 97 MMOL/L (98-107); CREATININE 0.7 MG/DL (0.55-1.30); SODIUM 136 MMOL/L (136-145)
--- NOTE | 2019-04-10 19:30 | NUR ---
HAND-OFF: Report given to MARLI MARR. Pt is awake and stable.
--- NOTE | 2019-04-10 19:40 | NUR ---
NURSE NOTES: Received report from TEJINDER Mariee. Patient is awake laying, watching TV. There are no signs of distress or pain. AO x4. Ambulates independently. Checked IV site, patent and flushed. No erythema, bleeding or infiltration noted. Bed in the lowest position with brakes and siderails up x2. Call light within reach. Will continue plan of care.
[2019-04-10 20:00] VITALS: BP 150/94
[2019-04-10] MEDS: DiphenhydrAMINE 25mg Tab ORAL PRN (20:31)
[2019-04-11] VITALS: BP 135/90
--- NOTE | 2019-04-11 03:46 | NUR ---
NURSE NOTES: Patient is asleep lying semi-damon's; resting comfortably. No signs of acute distress or pain noted at this time.
[2019-04-11 04:00] VITALS: BP 112/72
--- NOTE | 2019-04-11 05:10 | NUR ---
NURSE NOTES: Called Dr. Thibodeaux regarding patient's Magnesium level of 1.7 yesterday, but was not covered. Awaiting callback for any further orders.
[2019-04-11] MEDS: NovoLOG Insulin Flexpen SUBQ SCH ×4 (06:27→21:09)
[2019-04-11] MEDS: metFORMIN 500mg tab ORAL SCH ×2 (06:27→17:07)
[2019-04-11 06:33] LABS: BASOPHILS % (AUTO) 1.2 % (0.0-2.0); HEMATOCRIT 39.6 % (37.0-47.0); HEMOGLOBIN 14.5 G/DL (12.0-16.0); LYMPHOCYTES % (AUTO) 39.5 % (20.0-45.0); MEAN CORPUSCULAR VOLUME 91 FL (80-99); MONOCYTES % (AUTO) 7.7 % (1.0-10.0); NEUTROPHILS % (AUTO) 50.7 % (45.0-75.0); PLATELET COUNT 190 K/UL (150-450); RED BLOOD COUNT 4.37 M/UL (4.20-5.40); RED CELL DISTRIBUTION WIDTH 11.3 % (11.6-14.8); WHITE BLOOD COUNT 6.9 K/UL (4.8-10.8)
--- NOTE | 2019-04-11 07:10 | NUR ---
HAND-OFF: Report given to TEJINDER Mariee. Patient is awake lying semi-damon's; resting comfortably. In stable condition.
--- NOTE | 2019-04-11 07:17 | NUR ---
NURSE NOTES: Received pt from MARLI MARR, Pt is awake and alert, pt is in RA, no SOB or acute respiratory distress noted. Pt is on continues heart monitoring. no complain of pain at this moment. pt has intact iv access LAC 20G SL. Pt is eating breakfast with observation, all needs attended, bed is locked and is in the lowest position, call light within easy reach. will continue to monitor.
[2019-04-11 07:56] VITALS: BP 144/98
[2019-04-11] MEDS ORDERED: LORazepam 0.5mg tab ORAL PRN (08:00)
[2019-04-11] MEDS: hydroCHLOROthiazide 25mg cap ORAL SCH (09:04)
[2019-04-11] MEDS: Lisinopril 20mg tab ORAL SCH (09:04)
[2019-04-11] MEDS: Heparin 5000 units/ml inj SUBQ SCH ×3 (09:09→21:10)
--- NOTE | 2019-04-11 09:11 | NUR ---
CASE MANAGEMENT:REVIEW 04/11/19 SI: HYPERTENSION. DM POSSIBLE CVA. BLURRED VISION. SLURRED SPEECH 98.7 86 20 144/98 96% ON RA GLUCOSE+315 IS: TRICOR PO QD HEPARIN SQ Q12 ASA PO QD HCTZ PO QD SS INSULIN AC+HS METFORMIN PO BID LISINOPRIL PO QD : TELEMETRY STATUS DCP: HOME PLAN: MRI BRAIN MRI SPINE
--- NOTE | 2019-04-11 10:12 | NUR ---
NURSE NOTES: Dr GUAMAN is aware about MG 1.4, waiting to call back. will continue to monitor.
--- NOTE | 2019-04-11 10:19 | NUR ---
*-* INSURANCE *-* ALL CLINICALS AND REVIEWS HAVE BEEN FAXED TO: [employer] TRK# [id number] F: [phone]
--- NOTE | 2019-04-11 11:18 | Pulmonology Progress Note ---
Assessment/Plan Problems: (1) Cerebral vascular accident (2) Hypertension (3) DM (diabetes mellitus) Assessment/Plan neuro evaluation requested, Dr Quezada was texted MRI of brain reviewed: small vessel disease or demyelinating disease monitor BP sliding scale diabetic diet add levemir. Margie was asked to see her. Subjective ROS Limited/Unobtainable: No Allergies: Coded Allergies: No Known Allergies (Unverified , 04/08/19) Objective Last 24 Hour Vital Signs Date Time Temp Pulse Resp B/P (MAP) Pulse Ox O2 Delivery O2 Flow Rate FiO2 04/11/19 09:04 144/98 04/11/19 09:00 Room Air 04/11/19 07:56 98.7 86 20 144/98 (113) 96 04/11/19 07:44 82 04/11/19 04:00 97.8 79 18 112/72 (85) 97 04/11/19 04:00 82 04/11/19 00:00 98.2 89 16 135/90 (105) 98 04/11/19 00:00 79 04/10/19 21:00 Room Air 04/10/19 20:00 98.2 96 16 150/94 (112) 96 04/10/19 20:00 82 04/10/19 16:40 91 04/10/19 16:00 98.1 85 20 140/89 (106) 91 04/10/19 12:00 98.7 61 18 140/93 (109) 96 04/10/19 11:46 80 Intake and Output 04/10/19 04/11/19 18:59 06:59 Intake Total 280 ml Output Total 1800 ml Balance -1520 ml Intake Oral 280 ml Output Urine Total 1800 ml # Voids 3 2 General Appearance: WD/WN HEENT: normocephalic, atraumatic Respiratory/Chest: chest wall non-tender, lungs clear Breasts: no masses Cardiovascular: normal peripheral pulses Abdomen: normal bowel sounds, soft, non tender Genitourinary: normal external genitalia Extremities: no cyanosis Skin: no rash 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 Laboratory Tests 04/10/19 17:30: Sodium Level 136, Potassium Level 4.0, Chloride Level 97L, Carbon Dioxide Level 31, Anion Gap 8, Blood Urea Nitrogen 16, Creatinine 0.7, Estimat Glomerular Filtration Rate > 60, Glucose Level 315H, Calcium Level 9.2 04/11/19 05:55: White Blood Count 6.9, Red Blood Count 4.37, Hemoglobin 14.5, Hematocrit 39.6, Mean Corpuscular Volume 91, Mean Corpuscular Hemoglobin 33.2H, Mean Corpuscular Hemoglobin Concent 36.6H, Red Cell Distribution Width 11.3L, Platelet Count 190 , Mean Platelet Volume 12.4H, Neutrophils (%) (Auto) 50.7, Lymphocytes (%) (Auto ) 39.5, Monocytes (%) (Auto) 7.7, Eosinophils (%) (Auto) 1.0, Basophils (%) ( Auto) 1.2, Magnesium Level 1.4L Current Medications Medications (Trade) Dose Ordered Sig/Hans Route PRN Reason Start Time Stop Time Status Last Admin Dose Admin Acetaminophen (Tylenol) 650 mg Q6H PRN ORAL Mild Pain/Temp > 100.5 04/08/19 23:45 05/08/19 23:44 04/09/19 07:43 Aspirin (ASA) 325 mg DAILY ORAL 04/09/19 09:00 05/09/19 08:59 04/11/19 09:04 Clonidine HCl (Catapres Tab) 0.1 mg Q4H PRN ORAL SBP Greater than 160 04/09/19 00:00 05/09/19 00:00 Dextrose (Dextrose 50%) 25 ml Q30M PRN IV Hypoglycemia 04/08/19 23:45 05/08/19 23:44 Dextrose (Dextrose 50%) 50 ml Q30M PRN IV Hypoglycemia 04/08/19 23:45 05/08/19 23:44 Diphenhydramine HCl (Benadryl) 25 mg Q6H PRN ORAL Itching 04/09/19 12:00 05/09/19 11:59 04/10/19 20:31 Fenofibrate (Tricor) 145 mg DAILY ORAL 04/10/19 09:00 05/10/19 08:59 04/11/19 09:03 Heparin Sodium (Porcine) (Heparin 5000 units/ml) 5,000 units EVERY 12 HOURS SUBQ 04/09/19 09:00 05/09/19 08:59 04/11/19 09:09 Hydrochlorothiazide (Hydrodiuril) 25 mg DAILY ORAL 04/09/19 09:00 05/09/19 08:59 04/11/19 09:04 Insulin Aspart (NovoLOG) BEFORE MEALS AND HS SUBQ 04/09/19 06:30 05/09/19 06:29 04/11/19 06:27 Lisinopril (PriniviL) 20 mg DAILY ORAL 04/08/19 09:00 05/08/19 08:59 04/11/19 09:04 Lorazepam (Ativan) 0.5 mg ONCE PRN ORAL 30min prior to MRI 04/11/19 08:00 04/11/19 20:00 04/11/19 09:04 Metformin HCl (Glucophage) 500 mg BID@0630,1630 ORAL 04/09/19 06:30 05/09/19 06:29 04/11/19 06:27 Ondansetron HCl (Zofran) 4 mg Q4H PRN IVP Nausea & Vomiting 04/08/19 23:45 05/08/19 23:44 Pravastatin Sodium (Pravachol) 20 mg BEDTIME ORAL 04/09/19 21:00 05/09/19 20:59 04/10/19 20:32 James Thibodeaux MD Apr 11, 2019 11:18
[2019-04-11 12:00] VITALS: BP 120/78
[2019-04-11] MEDS: Levemir Flexpen SUBQ SCH (12:09)
[2019-04-11] MEDS: Magnesium Oxide 400mg tab ORAL SCH ×2 (13:07→17:07)
[2019-04-11] MEDS ORDERED: Gadavist 7.5mMol/7.5ml vial IV PRN (13:15)
--- NOTE | 2019-04-11 15:34 | NUR ---
MRA BRAIN AND MRA NECK COMPLETED.
--- NOTE | 2019-04-11 15:37 | Internal Med Progress Note ---
Subjective Physician Name Marcel Recinos Attending Physician Marcel Recinos MD Current Medications Medications (Trade) Dose Ordered Sig/Hans Route PRN Reason Start Time Stop Time Status Last Admin Dose Admin Acetaminophen (Tylenol) 650 mg Q6H PRN ORAL Mild Pain/Temp > 100.5 04/08/19 23:45 05/08/19 23:44 04/09/19 07:43 Aspirin (ASA) 325 mg DAILY ORAL 04/12/19 09:00 05/12/19 08:59 Clonidine HCl (Catapres Tab) 0.1 mg Q4H PRN ORAL SBP Greater than 160 04/09/19 00:00 05/09/19 00:00 Clopidogrel Bisulfate (Plavix) 75 mg DAILY ORAL 04/12/19 09:00 05/12/19 08:59 Dextrose (Dextrose 50%) 25 ml Q30M PRN IV Hypoglycemia 04/08/19 23:45 05/08/19 23:44 Dextrose (Dextrose 50%) 50 ml Q30M PRN IV Hypoglycemia 04/08/19 23:45 05/08/19 23:44 Diphenhydramine HCl (Benadryl) 25 mg Q6H PRN ORAL Itching 04/09/19 12:00 05/09/19 11:59 04/10/19 20:31 Fenofibrate (Tricor) 145 mg DAILY ORAL 04/10/19 09:00 05/10/19 08:59 04/11/19 09:03 Gadobutrol (Gadavist) 7.5 mmol NOW PRN IV Radiology Procedure 04/11/19 13:15 04/14/19 13:14 Heparin Sodium (Porcine) (Heparin 5000 units/ml) 5,000 units EVERY 12 HOURS SUBQ 04/09/19 09:00 05/09/19 08:59 04/11/19 09:09 Hydrochlorothiazide (Hydrodiuril) 25 mg DAILY ORAL 04/09/19 09:00 05/09/19 08:59 04/11/19 09:04 Insulin Aspart (NovoLOG) BEFORE MEALS AND HS SUBQ 04/09/19 06:30 05/09/19 06:29 04/11/19 12:09 Insulin Detemir (Levemir) 13 units DAILY SUBQ 04/11/19 12:30 05/11/19 12:29 04/11/19 12:09 Lisinopril (PriniviL) 20 mg DAILY ORAL 04/08/19 09:00 05/08/19 08:59 04/11/19 09:04 Lorazepam (Ativan) 0.5 mg ONCE PRN ORAL 30min prior to MRI 04/11/19 08:00 04/11/19 20:00 04/11/19 09:04 Magnesium Oxide (Mag-Ox 400mg) 400 mg THREE TIMES A DAY ORAL 04/11/19 13:00 05/11/19 12:59 04/11/19 13:07 Metformin HCl (Glucophage) 500 mg BID@0630,1630 ORAL 04/09/19 06:30 05/09/19 06:29 04/11/19 06:27 Ondansetron HCl (Zofran) 4 mg Q4H PRN IVP Nausea & Vomiting 04/08/19 23:45 05/08/19 23:44 Pravastatin Sodium (Pravachol) 20 mg BEDTIME ORAL 04/09/19 21:00 05/09/19 20:59 04/10/19 20:32 Allergies: Coded Allergies: No Known Allergies (Unverified , 04/08/19) Subjective awake, alert, responsive, No CP or SOB. Objective Last Vital Signs Date Time Temp Pulse Resp B/P (MAP) Pulse Ox O2 Delivery O2 Flow Rate FiO2 04/11/19 12:00 96.8 80 18 120/78 (92) 96 04/11/19 09:00 Room Air Laboratory Tests Test 04/10/19 17:30 04/11/19 05:55 Sodium Level 136 MMOL/L (136-145) Potassium Level 4.0 MMOL/L (3.5-5.1) Chloride Level 97 MMOL/L (98-107) L Carbon Dioxide Level 31 MMOL/L (21-32) Anion Gap 8 mmol/L (5-15) Blood Urea Nitrogen 16 mg/dL (7-18) Creatinine 0.7 MG/DL (0.55-1.30) Estimat Glomerular Filtration Rate > 60 mL/min (>60) Glucose Level 315 MG/DL (74-106) H Calcium Level 9.2 MG/DL (8.5-10.1) White Blood Count 6.9 K/UL (4.8-10.8) Red Blood Count 4.37 M/UL (4.20-5.40) Hemoglobin 14.5 G/DL (12.0-16.0) Hematocrit 39.6 % (37.0-47.0) Mean Corpuscular Volume 91 FL (80-99) Mean Corpuscular Hemoglobin 33.2 PG (27.0-31.0) H Mean Corpuscular Hemoglobin Concent 36.6 G/DL (32.0-36.0) H Red Cell Distribution Width 11.3 % (11.6-14.8) L Platelet Count 190 K/UL (150-450) Mean Platelet Volume 12.4 FL (6.5-10.1) H Neutrophils (%) (Auto) 50.7 % (45.0-75.0) Lymphocytes (%) (Auto) 39.5 % (20.0-45.0) Monocytes (%) (Auto) 7.7 % (1.0-10.0) Eosinophils (%) (Auto) 1.0 % (0.0-3.0) Basophils (%) (Auto) 1.2 % (0.0-2.0) Magnesium Level 1.4 MG/DL (1.8-2.4) L Intake and Output 04/10/19 04/11/19 18:59 06:59 Intake Total 280 ml Output Total 1800 ml Balance -1520 ml Intake Oral 280 ml Output Urine Total 1800 ml # Voids 3 2 Objective General: No acute distress, awake and alert HEENT: NCAT, sclera anicteric, PERRL, EOMI. Neck: Supple, no significant jugular venous distention, Lungs: Good inspiratory effort, clear to auscultation bilaterally, no Wheeze or Rales. Heart: Regular rate and rhythm, normal S1/S2, no murmurs. Abdomen: soft, nontender, nondistended. Normoactive bowel sounds. / Rectal: Refused and deferred. Extremities: No Cyanosis , clubbing or edema. Neuro: A&O x 3, Able to move all extremities Skin: warm, no rashes or lesions Psych: Normal mood and affect Assessment/Plan Assessment/Plan 1. Left-sided numbness possible TIA Vs. CVA Vs. Demyelinating disease . 2. Hypertensive emergency. 3. Headache. 4. Blurred vision. 5. Diabetes type 2. 6. Hypertension. 7. Hypercholesterolemia. TREATMENT: 1. Left-sided numbness/headache/blurred vision. MRA brain and neck. A Neurology consultation has been obtained with Dr. Jax Quezada. We will follow recommendations of Neurology. Differential includes acute cerebrovascular accident versus transient ischemic attack. 2. Hypertensive emergency. The patient has been placed on lisinopril and hydrochlorothiazide as above. Clonidine will be used p.r.n. for systolic greater than 150, diastolic greater than 100. 3. Diabetes type 2. Continue metformin as above. NovoLog sliding scale has been instituted for coverage. 4. Hypercholesterolemia. Continue atorvastatin as above. Macrel Recinos MD Apr 11, 2019 15:37
[2019-04-11 16:00] VITALS: BP 118/84
--- NOTE | 2019-04-11 16:02 | Diagnostic Imaging Report ---
Indication: Neck pain Technique: MRI examination of the cervical spine was performed in a 1.5 Reina magnet. Sequences obtained include sagittal and axial T1 and T2 fast spin echo, and sagittal STIR. Comparison: none Findings: Alignment: Normal Bone marrow signal: Normal. Spinal cord: Cord compression, likely chronic at the levels of C3-4 C4-5. Central intramedullary increased T2 signal consistent with myelomalacia at C4-5. See discussion below. Soft tissues: No paravertebral or paraspinous soft tissue collections or edema identified. C1-2: Unremarkable. C2-3: Unremarkable. C3-4, C4-5, C5-6: There is evidence of a large central posterior extradural mass (C3-C6 ) likely representing large disc extrusion involving the 3 contiguous discs at C3-4, C4-5 and C5-6. At C3-4, the epidural focus is isointense and signal to disc on both T1 and T2-weighted images. At C3-4, the disc extrusion measures 6 mm AP and 7.4 mm transverse dimensions. There is moderate compression of the thecal sac and cord resulting in stenosis of the central canal which has a residual thecal sac diameter at its narrowest of about 4 mm at this level. In the craniocaudal dimension the extruded disc extends as superior as the C2-3 disc level. At its inferior margin the disc extrusion is contiguous with a C4-5 disc extrusion and also contiguous with a C5-6 disc extrusion. Craniocaudally, the entire extradural mass extends to the C6-7 disc. There is mild narrowing of the C3-4 neural foramen bilaterally due to uncovertebral/facet arthropathy. At C4-5 there is moderate loss of disc height. There is evidence of a prominent disc extrusion at this level measuring about 6 m AP. As stated previously, the disc extrusion is contiguous extruded disc material from the level above. The inferior margin of the C4-5 disc extrusion is better defined. There is moderate to severe stenosis of the C4-5 neural foramen bilaterally due to uncovertebral/facet arthropathy. At C5-6 there is also evidence of a disc extrusion. AP dimension is about 3 to 4 mm. There is loss of disc height. There is slight inferior extension of the disc extrusion to about the level of the C6-7 disc. There is moderate stenosis of the C5-6 neural foramen bilaterally due to uncovertebral/facet arthropathy. C6-7: There is no disc herniation at this level. The central canal is patent. The lateral recesses are patent as are neural foramina. C7-T1 widely patent central canal, lateral recess and neural foramen demonstrated. Disc height is normal. IMPRESSION: Intermediate to low signal intensity extradural mass posterior to C3, C4, C5 and C6 likely on the basis of disc extrusions at C3-4, C4-5 and C5-6. Associated compression of the spinal cord at C3-4 and C4-5 with resultant myelomalacia. The extruded disc material appears relatively contiguous with the parent disc at each of these levels and is difficult to delineate further on this study. Would also consider the possibility of superimposed hypertrophy or calcification of the posterior longitudinal ligament. Consider CT for evaluation. Narrowing of the neural foramen at C3-4, C4-5 and C5-6 secondary to uncovertebral/facet arthropathy.
--- NOTE | 2019-04-11 16:42 | Diagnostic Imaging Report ---
Indication: Syncope Technique: Study was performed in a 1.5 Reina magnet. Gadolinium-enhanced MR angiography of the extracranial portions of both carotid arteries performed from the thoracic arch to the skull base. Maximum intensity projection images displayed in different projections. Comparison: None Findings: Right carotid: No significant carotid stenosis is identified. Left carotid: No significant stenosis is identified. Vertebral arteries below the skull base appear unremarkable. The aortic arch appears unremarkable. The origins of the left subclavian, left common carotid and innominate arteries appear patent. Origin of the right common carotid artery is patent. IMPRESSION: Negative evaluation of the extracranial carotid and vertebral arteries. No stenosis identified.
--- NOTE | 2019-04-11 16:43 | Diagnostic Imaging Report ---
Indication: Syncope. Left eye blurry vision. Numbness in the left hand Technique: 3-D [id number] of the brain Comparison: None Findings: No significant stenosis, vascular malformation, or aneurysm is identified. Flow-related enhancement of the major intracranial arteries demonstrated including the anterior, middle, and posterior cerebral arteries. Impression: Negative MRA of the brain
--- NOTE | 2019-04-11 19:21 | NUR ---
HAND-OFF: Report given to COOPER MARR. Pt is awake and stable, endorsed to F/U for CERVICAL collar with CM.
--- NOTE | 2019-04-11 19:30 | NUR ---
NURSE NOTES: Received report from TEJINDER Mariee. Patient is in bed, awake, alert, and responsive. Breathing regular and unlabored with no S/S of SOB noted. Patient denies any pain or discomfort at this time. Bed is in lowest position, breaks engaged, and call light is within reach at all times. All other needs attended to, patient remains stable, will continue to monitor.
[2019-04-11 20:00] VITALS: BP 118/94
[2019-04-12] VITALS: BP 120/89
[2019-04-12 04:00] VITALS: BP_SYST 108; BP_SYST 152; BP_DIAS 65; BP_DIAS 69
[2019-04-12] MEDS: metFORMIN 500mg tab ORAL SCH (06:36)
[2019-04-12] MEDS: NovoLOG Insulin Flexpen SUBQ SCH ×2 (06:38→11:30)
--- NOTE | 2019-04-12 07:05 | NUR ---
HAND-OFF: Report given to TEJINDER Askew. Patient in stable condition, plan of care endorsed.
[2019-04-12 07:31] LABS: EOSINOPHILS % (AUTO) 1.2 % (0.0-3.0); HEMATOCRIT 41.2 % (37.0-47.0); HEMOGLOBIN 14.5 G/DL (12.0-16.0); LYMPHOCYTES % (AUTO) 30.3 % (20.0-45.0); MEAN CORPUSCULAR VOLUME 92 FL (80-99); MONOCYTES % (AUTO) 9.4 % (1.0-10.0); NEUTROPHILS % (AUTO) 58.2 % (45.0-75.0); PLATELET COUNT 204 K/UL (150-450); RED CELL DISTRIBUTION WIDTH 11.3 % (11.6-14.8); WHITE BLOOD COUNT 7.7 K/UL (4.8-10.8)
[2019-04-12 08:00] VITALS: BP 113/78
--- NOTE | 2019-04-12 08:03 | NUR ---
NURSE NOTES: Received report from TEJINDER Rodriguez. Pt in bed,awake, talkative, a/ox4, eating breakfast, no c/o pain, no apparent distress noted, discussed plan of care with pt and RN will call CM regarding cervical spine collar, bed in lowest position, call light within reach.
[2019-04-12 08:21] LABS: ALANINE AMINOTRANSFERASE 25 U/L (12-78); ALBUMIN 3.7 G/DL (3.4-5.0); ALBUMIN/GLOBULIN RATIO 0.9 (1.0-2.7); ALKALINE PHOSPHATASE 71 U/L (46-116); ANION GAP 8 mmol/L (5-15); ASPARTATE AMINO TRANSFERASE 14 U/L (15-37); BILIRUBIN,TOTAL 0.8 MG/DL (0.2-1.0); BLOOD UREA NITROGEN 13 mg/dL (7-18); CALCIUM 9.8 MG/DL (8.5-10.1); CARBON DIOXIDE 30 MMOL/L (21-32); CHLORIDE 97 MMOL/L (98-107); PHOSPHORUS 4.7 MG/DL (2.5-4.9); SODIUM 135 MMOL/L (136-145)
[2019-04-12] MEDS: Lisinopril 20mg tab ORAL SCH (09:21)
[2019-04-12] MEDS: Magnesium Oxide 400mg tab ORAL SCH ×2 (09:22→12:04)
[2019-04-12] MEDS: hydroCHLOROthiazide 25mg cap ORAL SCH (09:22)
[2019-04-12] MEDS: Levemir Flexpen SUBQ SCH (09:26)
--- NOTE | 2019-04-12 09:33 | NUR ---
NURSE NOTES: Discussed with BOYD Woody mag 1.6, pt is already taking mag oxide 400mg PO TID, no new orders given
--- NOTE | 2019-04-12 09:54 | Pulmonology Progress Note ---
Assessment/Plan Assessment/Plan ASSESSMENT 1. L sided weakness , resolved, ?TIA vs CVA 2. HTN with initial HTN urgency 3. DM 4. Mixed HLD with severely elevated TG 5. Smoker 6. Hypomagnesemia PLAN OF CARE tele CT head and MRI brain negative MRI of the brain with nonspecific findings, demyelinating disease not excludable MRA of the brain negative MRA of the neck with negative evaluation of the extracranial carotid and vertebral arteries, no stenosis head MRI/neck MRA MRI cervical spine with associated compression of the spinal cord at C3-4 and C4 -5 with resultant myelomalacia , recommended CT for evaluation carotid Duplex unremarkable neuro eval done, but no consult in the EMR available cervical collar ordered , all neuro symptoms now resolved need neurosurgery eval hemoglobin A1c 9.4 Levemir added for BS control started on oral magnesium supplements BP management with LUIS EDUARDO and HCTZ lipid panel with severely elevated TG>800, started pt on TriCor, monitor LFT , educated on diet ASA, Plavix, statin evp general counsel on smoking cessation, declined Nicotine patch all symptoms resolved, pt wanted to go home unfortunately no neurosurgeon service available at this facility patient was counseled to make appointment with her PMD in 2-3 days with referral to neurosurgeon for further management patient was also counseled if symptoms returned, go to a larger ER, like [facility] for further evaluation and management patient verbalized understanding of dc instructions in fact, she already made an appointment with PMD for the next week case discussed and evaluated by supervising physician Subjective Allergies: Coded Allergies: No Known Allergies (Unverified , 04/08/19) Subjective neuro symptoms resolved seen by neuro all imaging reviewed Objective Last 24 Hour Vital Signs Date Time Temp Pulse Resp B/P (MAP) Pulse Ox O2 Delivery O2 Flow Rate FiO2 04/12/19 09:21 113/78 04/12/19 09:00 Room Air 04/12/19 08:00 98.2 88 21 113/78 (90) 98 04/12/19 04:00 98.0 65 19 108/65 (79) 97 04/12/19 04:00 84 04/12/19 00:00 98.0 99 20 120/89 (99) 96 04/12/19 00:00 84 04/11/19 21:00 Room Air 04/11/19 20:00 98.1 103 20 118/94 (102) 96 04/11/19 20:00 97 04/11/19 16:00 98.1 100 18 118/84 (95) 97 04/11/19 15:38 98 04/11/19 12:00 96.8 80 18 120/78 (92) 96 04/11/19 11:45 89 Intake and Output 04/11/19 04/12/19 18:59 06:59 Intake Total 280 ml 160 ml Output Total 1600 ml Balance -1320 ml 160 ml Intake Oral 280 ml 160 ml Output Urine Total 1600 ml # Voids 3 1 Objective General Appearance: WD/WN, no apparent distress, A/A/O x 4 Lines, tubes and drains: peripheral HEENT: normocephalic, atraumatic, anicteric, mucous membranes moist Neck: supple Respiratory/Chest: lungs clear, no respiratory distress, no accessory muscle use Cardiovascular/Chest: normal peripheral pulses, normal rate, regular rhythm Abdomen: normal bowel sounds, non tender, soft Extremities: no calf tenderness, normal capillary refill Skin Exam: warm/dry Neurologic: alert, normal mood/affect; motor strength now 5/5 BLE and BUE, no pronator drift Musculoskeletal: normal muscle bulk Laboratory Tests 04/12/19 05:50: White Blood Count 7.7, Red Blood Count 4.50, Hemoglobin 14.5, Hematocrit 41.2, Mean Corpuscular Volume 92, Mean Corpuscular Hemoglobin 32.3H, Mean Corpuscular Hemoglobin Concent 35.2, Red Cell Distribution Width 11.3L, Platelet Count 204, Mean Platelet Volume 10.8H, Neutrophils (%) (Auto) 58.2, Lymphocytes (%) (Auto) 30.3, Monocytes (%) (Auto) 9.4, Eosinophils (%) (Auto) 1.2, Basophils (%) (Auto ) 1.0, Erythrocyte Sedimentation Rate 33H, Sodium Level 135L, Potassium Level 4.0, Chloride Level 97L, Carbon Dioxide Level 30, Anion Gap 8, Blood Urea Nitrogen 13, Creatinine 1.0, Estimat Glomerular Filtration Rate > 60, Glucose Level 218H, Calcium Level 9.8, Phosphorus Level 4.7, Magnesium Level 1.6L, Total Bilirubin 0.8, Aspartate Amino Transf (AST/SGOT) 14L, Alanine Aminotransferase (ALT/SGPT) 25, Alkaline Phosphatase 71, C-Reactive Protein, Quantitative 1.1H, Total Protein 7.8, Albumin 3.7, Globulin 4.1, Albumin/ Globulin Ratio 0.9L Current Medications Medications (Trade) Dose Ordered Sig/Hans Route PRN Reason Start Time Stop Time Status Last Admin Dose Admin Acetaminophen (Tylenol) 650 mg Q6H PRN ORAL Mild Pain/Temp > 100.5 04/08/19 23:45 05/08/19 23:44 04/11/19 17:10 Aspirin (ASA) 325 mg DAILY ORAL 04/12/19 09:00 05/12/19 08:59 04/12/19 09:21 Clonidine HCl (Catapres Tab) 0.1 mg Q4H PRN ORAL SBP Greater than 160 04/09/19 00:00 05/09/19 00:00 Clopidogrel Bisulfate (Plavix) 75 mg DAILY ORAL 04/12/19 09:00 05/12/19 08:59 04/12/19 09:22 Dextrose (Dextrose 50%) 25 ml Q30M PRN IV Hypoglycemia 04/08/19 23:45 05/08/19 23:44 Dextrose (Dextrose 50%) 50 ml Q30M PRN IV Hypoglycemia 04/08/19 23:45 05/08/19 23:44 Diphenhydramine HCl (Benadryl) 25 mg Q6H PRN ORAL Itching 04/09/19 12:00 05/09/19 11:59 04/10/19 20:31 Fenofibrate (Tricor) 145 mg DAILY ORAL 04/10/19 09:00 05/10/19 08:59 04/12/19 09:22 Gadobutrol (Gadavist) 7.5 mmol NOW PRN IV Radiology Procedure 04/11/19 13:15 04/14/19 13:14 Heparin Sodium (Porcine) (Heparin 5000 units/ml) 5,000 units EVERY 12 HOURS SUBQ 04/09/19 09:00 05/09/19 08:59 04/11/19 09:09 Hydrochlorothiazide (Hydrodiuril) 25 mg DAILY ORAL 04/09/19 09:00 05/09/19 08:59 04/12/19 09:22 Insulin Aspart (NovoLOG) BEFORE MEALS AND HS SUBQ 04/09/19 06:30 05/09/19 06:29 04/12/19 06:38 Insulin Detemir (Levemir) 13 units DAILY SUBQ 04/11/19 12:30 05/11/19 12:29 04/12/19 09:26 Lisinopril (PriniviL) 20 mg DAILY ORAL 04/08/19 09:00 05/08/19 08:59 04/12/19 09:21 Magnesium Oxide (Mag-Ox 400mg) 400 mg THREE TIMES A DAY ORAL 04/11/19 13:00 05/11/19 12:59 04/12/19 09:22 Metformin HCl (Glucophage) 500 mg BID@0630,1630 ORAL 04/09/19 06:30 05/09/19 06:29 04/12/19 06:36 Ondansetron HCl (Zofran) 4 mg Q4H PRN IVP Nausea & Vomiting 04/08/19 23:45 05/08/19 23:44 Pravastatin Sodium (Pravachol) 20 mg BEDTIME ORAL 04/09/19 21:00 05/09/19 20:59 04/11/19 21:08 Annalise Fajardo NP Apr 12, 2019 09:54
--- NOTE | 2019-04-12 11:28 | NUR ---
NURSE NOTES: Obtained soft cervical collar for pt and placed around pt's neck properly. Updated pt on plan of care, pt needs to be seen by a neurosurgeon. BOYD Fajardo contacted Dr. Golden to obtain consult/referral, RN will f/u with Dr. Golden during rounds. RN will provide pt with education on myelomalcia and review with pt
--- NOTE | 2019-04-12 11:30 | NUR ---
RD ASSESSMENT & RECOMMENDATIONS SEE CARE ACTIVITY FOR COMPLETE ASSESSMENT DAILY ESTIMATED NEEDS: Needs based on DM, cardiac/ 52kg abw 25-30 kcals/kg 8305-5665 total kcals 1-1.2 g protein/kg 52-62 g total protein 25-30 mL/kg 4974-0976 total fluid mLs NUTRITION DIAGNOSIS: Altered nutrition related lab values R/T diabetes and altered lipid metabolism as evidenced by elev A1C of 9.5 w/ elev POC glu (194 197 248 233), elev triglyceride (840), elev total cholesterol (213). RD consult received for diet education regarding elev triglyceride. Pt aware of elev BGs and lipid panel levels. Currently on lipid lowering agents and Levemir + NISS + oral hypoglycemic for DM. Reports has not been active recently, has been lazy, and not watching diet. Diet education provided on cardiac diet as well as carb controlled diet. Reviewed carbs, carb counting, recommend carb servings w/ meals and in b/w meals, cardiac diet, examples of foods high in sodium, saturated and trans fat, healthy fats, reading nutrition facts labels, portion control, exercise and wt loss, etc. Pt asked many questions, verbalized good understanding of materials provided. Diet handouts provided as well. CURRENT DIET:CARDIAC, CCHO MED PO DIET RECOMMENDATIONS: CARDIAC + CCHO LOW (Texture per [employer]) ADDITIONAL RECOMMENDATIONS: * Standing wt for accurate CBW * Diet education provided on cardiac + carb controlled diet -> handouts provided as well * Monitor BGs closely, need to adjust insulin : a1c 9.5, POC glu high 100's + 200's. * Monitor lytes, replete as needed: low mag
[2019-04-12 12:00] VITALS: BP 108/79
--- NOTE | 2019-04-12 14:23 | Internal Med Progress Note ---
Subjective Date of Service: Apr 12, 2019 Physician Name ChantelKaran Attending Physician Marcel Recinos MD Current Medications Medications (Trade) Dose Ordered Sig/Hans Route PRN Reason Start Time Stop Time Status Last Admin Dose Admin Acetaminophen (Tylenol) 650 mg Q6H PRN ORAL Mild Pain/Temp > 100.5 04/08/19 23:45 05/08/19 23:44 04/11/19 17:10 Aspirin (ASA) 325 mg DAILY ORAL 04/12/19 09:00 05/12/19 08:59 04/12/19 09:21 Clonidine HCl (Catapres Tab) 0.1 mg Q4H PRN ORAL SBP Greater than 160 04/09/19 00:00 05/09/19 00:00 Clopidogrel Bisulfate (Plavix) 75 mg DAILY ORAL 04/12/19 09:00 05/12/19 08:59 04/12/19 09:22 Dextrose (Dextrose 50%) 25 ml Q30M PRN IV Hypoglycemia 04/08/19 23:45 05/08/19 23:44 Dextrose (Dextrose 50%) 50 ml Q30M PRN IV Hypoglycemia 04/08/19 23:45 05/08/19 23:44 Diphenhydramine HCl (Benadryl) 25 mg Q6H PRN ORAL Itching 04/09/19 12:00 05/09/19 11:59 04/10/19 20:31 Fenofibrate (Tricor) 145 mg DAILY ORAL 04/10/19 09:00 05/10/19 08:59 04/12/19 09:22 Gadobutrol (Gadavist) 7.5 mmol NOW PRN IV Radiology Procedure 04/11/19 13:15 04/14/19 13:14 Glimepiride (AmaryL) 2 mg ACBREAKFAST ORAL 04/13/19 06:30 05/13/19 06:29 Heparin Sodium (Porcine) (Heparin 5000 units/ml) 5,000 units EVERY 12 HOURS SUBQ 04/09/19 09:00 05/09/19 08:59 04/11/19 09:09 Hydrochlorothiazide (Hydrodiuril) 25 mg DAILY ORAL 04/09/19 09:00 05/09/19 08:59 04/12/19 09:22 Insulin Aspart (NovoLOG) BEFORE MEALS AND HS SUBQ 04/09/19 06:30 3/6/20 06:29 04/12/19 11:30 Lisinopril (PriniviL) 20 mg DAILY ORAL 04/08/19 09:00 05/08/19 08:59 04/12/19 09:21 Magnesium Oxide (Mag-Ox 400mg) 400 mg THREE TIMES A DAY ORAL 04/11/19 13:00 05/11/19 12:59 04/12/19 12:04 Metformin HCl (Glucophage) 1,000 mg BID@0630,1630 ORAL 04/12/19 16:30 05/09/19 06:29 Ondansetron HCl (Zofran) 4 mg Q4H PRN IVP Nausea & Vomiting 04/08/19 23:45 05/08/19 23:44 Pravastatin Sodium (Pravachol) 20 mg BEDTIME ORAL 04/09/19 21:00 05/09/19 20:59 04/11/19 21:08 Sitagliptin Phosphate (Januvia) 100 mg ACBREAKFAST ORAL 04/13/19 06:30 05/13/19 06:29 Sitagliptin Phosphate (Januvia) 100 mg ONCE ORAL 04/12/19 15:00 04/12/19 16:00 Allergies: Coded Allergies: No Known Allergies (Unverified , 04/08/19) ROS Limited/Unobtainable: No Constitutional: Reports: no symptoms HEENT: Reports: no symptoms Cardiovascular: Reports: no symptoms Respiratory: Reports: no symptoms Gastrointestinal/Abdominal: Reports: no symptoms Genitourinary: Reports: no symptoms 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: Reports: no symptoms Subjective 48 YO F admitted with left side numbness and headache. Now Hypertensive emergency. Cover for Int [place]-DR Recinos Objective Last Vital Signs Date Time Temp Pulse Resp B/P (MAP) Pulse Ox O2 Delivery O2 Flow Rate FiO2 04/12/19 12:00 98.2 73 20 108/79 (89) 97 04/12/19 09:00 Room Air Laboratory Tests Test 04/12/19 05:50 White Blood Count 7.7 K/UL (4.8-10.8) Red Blood Count 4.50 M/UL (4.20-5.40) Hemoglobin 14.5 G/DL (12.0-16.0) Hematocrit 41.2 % (37.0-47.0) Mean Corpuscular Volume 92 FL (80-99) Mean Corpuscular Hemoglobin 32.3 PG (27.0-31.0) H Mean Corpuscular Hemoglobin Concent 35.2 G/DL (32.0-36.0) Red Cell Distribution Width 11.3 % (11.6-14.8) L Platelet Count 204 K/UL (150-450) Mean Platelet Volume 10.8 FL (6.5-10.1) H Neutrophils (%) (Auto) 58.2 % (45.0-75.0) Lymphocytes (%) (Auto) 30.3 % (20.0-45.0) Monocytes (%) (Auto) 9.4 % (1.0-10.0) Eosinophils (%) (Auto) 1.2 % (0.0-3.0) Basophils (%) (Auto) 1.0 % (0.0-2.0) Erythrocyte Sedimentation Rate 33 MM/HR (0-20) H Sodium Level 135 MMOL/L (136-145) L Potassium Level 4.0 MMOL/L (3.5-5.1) Chloride Level 97 MMOL/L (98-107) L Carbon Dioxide Level 30 MMOL/L (21-32) Anion Gap 8 mmol/L (5-15) Blood Urea Nitrogen 13 mg/dL (7-18) Creatinine 1.0 MG/DL (0.55-1.30) Estimat Glomerular Filtration Rate > 60 mL/min (>60) Glucose Level 218 MG/DL (74-106) H Calcium Level 9.8 MG/DL (8.5-10.1) Phosphorus Level 4.7 MG/DL (2.5-4.9) Magnesium Level 1.6 MG/DL (1.8-2.4) L Total Bilirubin 0.8 MG/DL (0.2-1.0) Aspartate Amino Transf (AST/SGOT) 14 U/L (15-37) L Alanine Aminotransferase (ALT/SGPT) 25 U/L (12-78) Alkaline Phosphatase 71 U/L (46-116) C-Reactive Protein, Quantitative 1.1 mg/dL (0.00-0.90) H Total Protein 7.8 G/DL (6.4-8.2) Albumin 3.7 G/DL (3.4-5.0) Globulin 4.1 g/dL Albumin/Globulin Ratio 0.9 (1.0-2.7) L Intake and Output 04/11/19 04/12/19 19:00 07:00 Intake Total 140 ml 160 ml Output Total 1600 ml Balance -1460 ml 160 ml Intake Oral 140 ml 160 ml Output Urine Total 1600 ml # Voids 3 1 Objective PHYSICAL EXAMINATION: GENERAL: The patient is well-developed, well-nourished, female, in no apparent distress. HEENT: Eyes, pupils equal and responsive to light and accommodation. Extraocular movements are intact. NECK: Supple without lymphadenopathy. CHEST: Lungs are clear to auscultation bilaterally without wheezes or rales. CARDIOVASCULAR: Regular rate S1, S2 normal without murmurs, rubs, or gallops. ABDOMEN: Soft, nontender, and nondistended. Positive bowel sounds. No evidence of hepatosplenomegaly. Currently, no rebound or guarding noted. EXTREMITIES: Negative for clubbing, cyanosis, or edema. RECTAL/GENITAL: Not performed. NEUROLOGIC: Cranial nerves II through XII are grossly intact without focal deficits. Motor strength is 5/5 bilaterally. Deep tendon reflexes are 2+ plantar. Assessment/Plan Assessment/Plan ASSESSMENT: This is a 48-year-old female: 1. Left-sided numbness. 2. Hypertensive emergency. 3. Headache. 4. Blurred vision. 5. Diabetes type 2. 6. Hypertension. 7. Hypercholesterolemia. 8. 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 Left-sided numbness/headache/blurred vision. Initial CAT scan was reported as no acute intracranial abnormalities. An MRI of the brain= non specific findings; no definite infarct. Carotid duplex Dopplers are pending. A Neurology consultation has been obtained with Dr. Jax Quezada. We will follow recommendations of Neurology. Will require neurosurgery consult. Patient requests D/C home to Follow up with primary care physician for neurosurgery referral. Patient has cervical collar at bedside 2. Hypertensive emergency. The patient has been placed on lisinopril and hydrochlorothiazide as above. Clonidine will be used p.r.n. for systolic greater than 150, diastolic greater than 100. 3. Diabetes type 2. Continue metformin as above. NovoLog sliding scale has been instituted for coverage. 4. Hypercholesterolemia. Continue atorvastatin as above. Karan Golden MDb 8, 2020 14:23
[2019-04-12] MEDS ORDERED: Fenofibrate ORAL (14:26)
--- NOTE | 2019-04-12 15:22 | NUR ---
NURSE NOTES: Pt discharged home with all belongings. RN provided written and detailed instruction regarding discharge and to follow up with primary MD and seek a neurosurgeon consult for compressed C3-C5 myelomalacia, provided and reviewed educational material regarding all medications including uses, dose, side effects, frequency, route, purpose. Pt was also provided written material about health eating in order to reduce triglycerides, pt was accompanied by sisterKanchan, pt is ambulatory, IV removed intact, ID band removed, tele box returned, pt stable for discharge
[2019-04-12] MEDS ORDERED: metFORMIN 500mg tab ORAL SCH (16:30)
--- NOTE | 2019-04-12 22:15 | Consultation ---
DATE OF CONSULTATION: 04/12/2019 ENDOCRINOLOGY CONSULTATION CONSULTING PHYSICIAN: Gen Jacobsen M.D. REFERRING PHYSICIAN: Marcel Recinos M.D. REASON FOR CONSULTATION: Diabetes management. HISTORY OF PRESENT ILLNESS: The patient is a 48-year-old female, with history of diabetes for the past 3 years, on metformin, monotherapy as an outpatient,who presented to the hospital with accelerated hypertension. 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 Blood pressure was 200/115. Initially went to [facility] Emergency Room where CT of the brain did not show any evidence of intracranial abnormalities and then transferred to [facility] for further treatment. I was called to manage diabetes. PAST MEDICAL HISTORY: 1. Type 2 diabetes as above. 2. Hypertension. 3. Dyslipidemia. PAST SURGICAL HISTORY: 1. Hysterectomy. 2. twice. MEDICATIONS AN OUTPATIENT: 1. Metformin 1000 mg b.i.d. 2. Lisinopril and hydrochlorothiazide 20/25 daily. ALLERGIES TO MEDICATIONS: None. SOCIAL HISTORY: The patient is single, lives alone. She smokes 1/4 of a pack of cigarettes a day. No alcohol or drug use. REVIEW OF SYSTEMS: As per HPI. LABORATORY VALUES: Sodium 135, potassium 4, chloride 97, bicarbonate 30, BUN 13, creatinine 1.0, glucose 218, hemoglobin A1c of 9.5. TSH is 1.8. PHYSICAL EXAMINATION: VITAL SIGNS: Blood pressure 108/79, pulse 73, temperature 98.2, and respiratory rate of 20. HEENT: Pupils are equal and reactive to light. Sclerae anicteric. NECK: No JVD. No thyromegaly. No bruits. LUNGS: Clear. HEART: Regular rate and rhythm. ABDOMEN: Positive bowel sounds. Soft. EXTREMITIES: No clubbing, cyanosis, or edema. DIAGNOSES: 1. Accelerated hypertension. 2. Diabetes, out of control. DISCUSSION: 1. Discontinue Levemir. 2. Increase metformin to 1000 mg b.i.d. 3. Add Januvia 100 mg daily. 4. Add glimepiride 2 mg daily. 5. Continue NovoLog sliding scale before meals and at bedtime. 6. No need for insulin after discharge. 7. Glucose monitoring before meals and bedtime after discharge. 8. Hemoglobin A1c to be repeated in three months. Thank you, Dr. Recinos, for the courtesy of this consultation. Gen Jacobsen M.D. DR: NANCY JOB#: [id number] CC: UDAY
[2019-04-13] MEDS ORDERED: Glimepiride 1mg tab ORAL SCH (06:30)
--- NOTE | 2019-04-14 07:30 | Consultation ---
DATE OF CONSULTATION: 04/11/2019 NOTE: POOR AUDIO NEUROLOGICAL CONSULTATION CONSULTING PHYSICIAN: Jax Quezada M.D. CHIEF COMPLAINT: This is the first [facility] admission for this 48-year-old right-handed woman with a history of hypertension, diabetes, and hyperlipidemia from 7 to 8 years ago. Also, she is a smoker, smoking 1 pack over a week and a half for at least last 20 years. The patient was admitted with a chief complaint of left-sided numbness, left-sided headache, and visual loss. I was asked to see the patient because of the symptoms. HISTORY OF PRESENT ILLNESS: The patient had a history of neuropathy in her feet in 2011 with pain and tingling. She was given gabapentin at that time and the neuropathy "disappeared." She denies any previous history of stroke. She denies migraine headaches, but has had severe menstrual headaches. There is no history of . She denies any history of syphilis, gonorrhea, HIV, cancers, thyroid disease, or recent infections except for sinus infection last year. The patient has a history of tingling in the fingers, all of the fingers of her right hand. Especially if she extends her head backwards, it causes tingling down her right arm to all the fingers. Last month, she saw Dr. Garcia and noted that the tingling went especially into her right thumb. The patient was diagnosed with a pinched nerve in her neck or perhaps thoracic outlet syndrome. She was given some exercises and antibiotics because of the possibility of an infection. If she sleeps on the right side, she also gets tingling on the right side. However, on Sunday, the patient had sudden onset of blurred vision in the left eye. She thought the right eye was fine. She had tingling in her fingers and left-sided throbbing, moderately severe headache with nausea and vomiting. She also had paresthesias in her toes. Paresthesias in fingers lasted only about 24 hours. Blurred vision lasted about 2 hours. The headache lasted about 8 hours. The patient went to work on that day. Her blood pressure was found to be 200/115 and she was then sent to [facility] Emergency Room. She had a CT scan of the brain, which was alleged to be negative. She was then transferred to this hospital. She said she had an MRI over at [place] as well. The patient was admitted for possibility of a stroke. She had a brain MRI here on 04/10/2019. There was some periventricular T2 hyperintense signals noted and some chronic small vessel disease. Demyelinating disease was "not excludable." There was no restricted diffusion or other abnormalities. Duplex scan on 04/09/2019 revealed antegrade flow demonstrated within both vertebral arteries. No hemodynamically significant extracranial carotid artery stenosis was identified. There were mild heterogeneous plaques demonstrated in both carotid arteries. The patient on admission was mildly anemic with a normal white count and normal platelets. Chemistries were basically normal except her blood sugars were high at 315 today and 285 to 298 in the days prior. Her magnesium was slightly low. Calcium was normal. BUN and creatinine were normal. The patient had a 2D echocardiogram on 04/09/2019. The left ventricle was normal in size. The ejection fraction was 60 to 65%. However, there was mild left ventricular hypertrophy. The other cardiac chamber sizes were normal. She had some mitral anulus and aortic root calcification. There was reduced left ventricular relaxation and mild left ventricular diastolic dysfunction grade 1. The right ventricular systolic pressure was 17. Her EKG revealed a prolonged QT interval, but then thought to be normal. TSH was normal. The patient denies any chest pain, palpitation, shortness of breath, or edema in the lower extremities. There is no fever or chills. She denies any recent head or neck injuries. She does not drink or take illegal drugs. She was on 81 mg of aspirin prior to this event. She denies any dizzy spells, hearing loss, tinnitus, tremors or shakes, dysarthria, or dysphagia. Both the patient's parents had strokes and the father has dementia. PAST MEDICAL HISTORY/PAST MEDICAL ILLNESSES: 1. See above. 2. Fibroid tumors with hysterectomy and bilateral oophorectomy in 2011. ALLERGIES: She has sinus disease. SOCIAL HISTORY: She is unmarried. Has 2 children, in good health. SURGERIES: She had 2 C-sections and hysterectomy. FAMILY HISTORY: Her mother is from congestive heart failure. She is a diabetic. Has hypertension and had coronary artery disease. A lot of her siblings have diabetes type 2, one had ovarian cancer, one had cirrhosis of the liver with liver transplant. One brother of "double pneumonia." MEDICATIONS: Medications at home are pravastatin 20 mg, metformin 1000 mg, lisinopril/hydrochlorothiazide 20/25 mg. REVIEW OF SYSTEMS: Her appetite fluctuates. She is 146 pounds and 5 feet 1 inch tall. Rest of the review of systems is noncontributory. PHYSICAL EXAMINATION: GENERAL: She is a well-developed, well-nourished, overweight woman, lying in bed, in no acute distress. VITAL SIGNS: Blood pressure is 120/78, temperature is 96.8 degrees, pulse is 80 and regular, respiratory rate is 18. HEENT: Examination of the head reveals arcus senilis. NECK: There is no tenderness of the neck. No limitation of motion, however, there is right supraclavicular tenderness to palpation. Carotids are +2 without any bruits. LUNGS: Clear to auscultation. CARDIOVASCULAR: The JVP is flat. The PMI was not felt. The patient had a normal S1 and S2 was physiologically split. There is no S3, S4, murmurs, or rubs appreciated. ABDOMEN: Soft and nontender. Bowel sounds are active. No organomegaly. BACK: There is no tenderness to percussion or muscle spasm. EXTREMITIES: Intact. NEUROLOGIC EXAMINATION: MENTAL STATUS: Judgment, her judgment is normal. She is alert and awake. Affect, the affect is appropriate. Memory, past memory is intact to her date of 1970. Immediate recall 3/3 objects. Recent recall was 2/3 objects in 5 minutes. Intellect, similarities were abstract, i.e., train and bicycle "forms of transportation." However, she did not know how a watch and ruler are the same. CRANIAL NERVE EXAMINATION: CRANIAL NERVE II: Visual dawn are intact to confrontation. Fundi not visualized. CRANIAL NERVES III, IV, AND : Extraocular motility was full. Pupils were equal, round, and reactive to light and 5 mm. CRANIAL NERVE V: Facial and corneal sensations were intact to fine touch. Pterygoid strength 5/5. CRANIAL NERVE VII: Facial strength was 5/5 bilaterally. CRANIAL NERVE VIII: Auditory acuity was intact bilaterally to whisper. CRANIAL NERVES IX AND X: Gag was intact bilaterally. CRANIAL NERVE XI: Sternocleidomastoid strength was 5/5. . REFLEXES: 0 in the upper and lower extremities with downgoing toes and testing for Babinski response. COORDINATION: [id number], [id number] testing, and rapid alternating movements are normal. GAIT AND STATION: She had a normal based gait. Heel-toe tandem walk normal. Romberg is negative. SENSORY: Pinprick, fine touch, proprioception were all intact. . IMPRESSION: The patient probably has had a small lacunar stroke complicated by headaches. Given the risk factors, she probably had a complicated stroke; however, no evidence of an acute stroke on the MRI . I will change her aspirin dose from 81 to 325 mg. I would also probably put the patient on Plavix 75 mg her blood pressure controlled. Although her blood pressure is very high, it does not appear that she has a hypertensive encephalopathy. There is no evidence of . PLAN: 1. Aspirin 325 mg a day. 2. CT angiogram of the brain and neck. 3. . 4. CT of . 5. Continue control of blood pressure and the diabetes. . The numbness on the right hand radiating from the shoulders and the change in position of her neck suggested possibility of a cervical radiculopathy. The exact area is unclear, possibly C7 or thoracic outlet syndrome. Thank you for this interesting case. Jax Quezada MD DR: SERGIO JOB#: [id number] CC:
--- NOTE | 2019-04-15 09:29 | Discharge Summary ---
Discharge Summary Discharge Summary _ DATE OF ADMISSION: 04/08/2019 DATE OF DISCHARGE: 04/13/2019 DISCHARGED BY: Dr. Recinos REASON FOR ADMISSION: 48 years old female with history of diabetes, hypertension, hyperlipidemia, initially presented to [facility] with sudden onset of left-sided numbness . Blood pressure at that time was significantly elevated with highest being 197/ 129. Patient reported headache and blurred vision in the left eye . The symptoms resolved later . No reported chest pain or shortness of breath . CT of the head , done in the [facility] , failed to reveal any acute intracranial pathology. Patient subsequently was transferred to [facility] for insurance purposes. She initially reported numbness in the left upper extremity and then started to report right upper extremity tingling and discomfort in the neck area . Troponin was negative . EKG revealed no acute ischemic changes. Patient reported smoking ,about a pack in the week , but no EtOH or alcohol abuse. Magnesium was 1.6. Lipid panel revealed elevated triglycerides> 800 and elevated total cholesterol > 200. On initial evaluation patient demonstrated significant decrease in motor strength on the left side left upper and left lower extremities along with a left pronator drift. Patient subsequently admitted to telemetry floor for further management. CONSULTANTS: rf test engineer neurologist Dr. Quezada critical care Dr. Thibodeaux entry level account manager Dr. Jacobsen [facility]: Patient admitted to telemetry floor. MRI of the brain was repeated and revealed periventricular T2 hyperintense signal. Findings were nonspecific. At this age consideration included chronic small vessel disease, may be associated with the hypertension. However, demyelinating disease was not excluded. MRA of the neck revealed negative evaluation of the extracranial carotid and vertebral arteries. No stenosis was identified. Head MRA did not revealed any significant stenosis, vascular malformation or aneurysm . MRI of the cervical spine revealed intermediate to low signal intensity extradural mass posterior to C3, C4, C5 and C6, likely on the basis of disc extrusions at C3-4, C4-5 and C5-6. Associated compression of the spinal cord at C3-4 and C4-5 with resultant myelomalacia. The extruded disc material appeared relatively contiguous with the parent disc at each of these levels and is difficult to delineate further on this study. Also consider the possibility of superimposed hypertrophy or calcification of the posterior longitudinal ligament. Consider CT for evaluation. Narrowing of the neural foramen at C3-4, C4-5 and C5-6 secondary to vertebral/ facet arthropathy. Carotid duplex was unremarkable. Neurologist seen and evaluated patient. Per neurologist, patient probably had a small lacunar stroke, complicated by headache. No evidence of acute stroke on the MRI. Patient started on aspirin, and Plavix later was added. Per neurologist, the numbness of the right hand radiating from the shoulder and the change in the position of the neck suggested possibility of the cervical radiculopathy, possibly C7 or thoracic outlet syndrome. Blood pressure was managed with LUIS EDUARDO inhibitor and hydrochlorothiazide, blood pressure improved. Statin continued . Patient started on the TriCor for severely elevated triglycerides , monitor LFT . Patient was educated on low-fat low-cholesterol diet. Patient started on oral magnesium supplement. Patient counseled on smoking cessation ; she declined nicotine patch. Cervical collar was provided as per neurologist recommendation. Unfortunately unable to get a neurosurgery evaluation in this facility. All neuro symptoms per patient resolved, and she wanted to go home. Physical exam prior to discharge demonstrated equal motor strength 5/5 bilateral upper and lower extremities. Dress Shoe Inspector followed. Levemir was stopped. Oral anti-glycemic regimen was optimized as per entry level account manager; dose of metformin increased and Amaryl and Januvia added. Sliding scale of insulin was continued while in the hospital. No need for insulin upon discharge. Dress Shoe Inspector recommended glucose monitoring before meals and at bedtime after discharge. Diabetic teaching and diabetic diet provided. Hemoglobin A1c 9.5 clearly not at goal. Patient was advised to comply with medications and diet, and check hemoglobin A1c every 3 months. Patient was counseled to make appointment with her primary care physician with a referral to neurosurgeon for further evaluation. Patient also counseled if symptoms return, go to a larger hospital . Patient verbalized understanding of the discharge instructions. FINAL DIAGNOSES: Left-sided weakness : possible TIA versus CVA versus demyelinating disease Probably small lacunar infarct Possible cervical radiculopathy Hypertension with initial hypertensive urgency Diabetes mellitus [id number] Mixed hyperlipidemia with severely elevated triglycerides Smoker Hypomagnesemia DISCHARGE MEDICATIONS: See Medication Reconciliation list. DISCHARGE INSTRUCTIONS: Patient was discharged home. Patient to follow-up with a primary care provider next week as scheduled with referral to neurosurgeon. Patient was advised if symptoms recur go to the largest emergency room for evaluation by neurosurgeon. Annalise Fajardo NP Apr 15, 2019 09:29
--- NOTE | 2019-04-16 09:48 | NUR ---
*-* INSURANCE *-* ALL CLINICALS AND REVIEWS HAVE BEEN FAXED TO: [employer] MARTINEZ# [id number] F: [phone] Addendum: 04/17/19 at 1704 by RONY LINARES CM DISCHARGE SUMMARY HAS BEEN FAXED
--- NOTE | 2019-04-23 13:24 | NUR ---
*-* INSURANCE *-* ALL CLINICALS AND REVIEWS HAVE BEEN FAXED TO: [employer] PURCELL TRK# [id number] F: [phone]
== END 2019-04-12 15:22 | disposition home or self-care (01) | DRG 65 ==
LOC: 2E 21:59
DX: I63.9 Cerebral infarction, unspecified (principal); G45.9 Transient cerebral ischemic attack, unspecified; I16.1 Hypertensive emergency; I10 Essential (primary) hypertension; Z79.84 Long term (current) use of oral hypoglycemic drugs; E11.65 Type 2 diabetes mellitus with hyperglycemia; E78.2 Mixed hyperlipidemia; F17.200 Nicotine dependence, unspecified, uncomplicated; E83.42 Hypomagnesemia; Z90.710 Acquired absence of both cervix and uterus; M50.21 Other cervical disc displacement, high cervical region; M48.02 Spinal stenosis, cervical region
CPT/HCPCS: 36415; 70544; 70548; 70551; 72141; 80048; 80053; 80061; 82962; 83036; 83735; 84100; 84443; 84484; 85025; 85651; 86140; 93005; 93306; 93880; A9585; J1815; S5561